=== PATIENT | female | born 1955 | race Caucasian/White ===

== ENCOUNTER 2020-01-25 05:44 | Inpatient (IN) | payer BC ==
[~2020-01-25] VITALS: Ht 177.8 cm; Wt 102.3 kg
[~2020-01-25 05:44] MED LIST: ASPI-1265 PO; CALC-1215 PO; CARV12.5 PO; DULA0.75 SQ; DULO-31 PO; EMPA10TA PO; ESOM40CA49 PO; FEXO-124 PO; FURO40TA4 PO; IVAB5TAB PO; METF-900 PO; SACU1TAB PO; TORS10TA17 PO
[2020-01-25] MEDS ORDERED: aspirin 81mg tab.chew PO ONE (05:50)
[2020-01-25] MEDS ORDERED: nitroGLYCERIN-Tridil 50MG/D5W 250 ML IV PRN ×2 (06:15→06:16)
[2020-01-25] MEDS ORDERED: furosemide 10 MG/1 ML 10ml inj IV ONE (06:15)
[2020-01-25 06:23] LABS: BASOPHILS % (AUTO) 0.4 % (0-1); EOSINOPHILS # (AUTO) 0.1 X10'3 (0-0.9); HEMATOCRIT 42.2 % (35.0-45.0); HEMOGLOBIN 13.9 g/dl (12.0-16.0); LYMPHOCYTES # (AUTO) 0.9 X10'3 (1.1-4.8); LYMPHOCYTES % (AUTO) 9.7 % (21-51); MEAN CORPUSCULAR HGB CONC 32.9 g/dL (33.0-36.5); MEAN CORPUSCULAR VOLUME 85.1 FL (78-98); MEAN PLATELET VOLUME 9.1 FL (7.4-10.4); MONOCYTES # (AUTO) 0.4 X10'3 (0-0.9); MONOCYTES % (AUTO) 4.3 % (2-12); NEUTROPHILS % (AUTO) 84.6 % (42-75); PLATELET COUNT 242 X10'3 (140-440); RED BLOOD COUNT 4.96 X10'6 (4.20-5.60); RED CELL DISTRIBUTION WIDTH 15.4 % (11.5-14.5); WHITE BLOOD COUNT 9.5 X10'3 (4.5-11.0)
[2020-01-25] MEDS ORDERED: ATOR20TA PO (06:40)
[2020-01-25] MEDS ORDERED: CARV6.253 PO (06:44)
[2020-01-25] MEDS ORDERED: DULO30CA52 PO (06:44)
[2020-01-25] MEDS ORDERED: DAPA5TAB PO (06:44)
[2020-01-25] MEDS ORDERED: MAGN500C16 PO (06:48)
[2020-01-25] MEDS ORDERED: INSU100I29 SQ (06:48)
[2020-01-25] MEDS ORDERED: GABA600T13 PO (06:48)
[2020-01-25] MEDS ORDERED: UBID200C18 PO (06:48)
[2020-01-25 06:56] LABS: ALANINE AMINOTRANSFERASE 34 U/L (12-78); ALBUMIN 3.9 G/DL (3.4-5.0); ALKALINE PHOSPHATASE 136 IU/L (46-116); ANION GAP 11 (8-16); ASPARTATE AMINO TRANSFERASE 17 U/L (10-37); BILIRUBIN,TOTAL 0.6 MG/DL (0.1-1.0); BLOOD UREA NITROGEN 15 MG/DL (7-18); BUN/CREATININE RATIO 12.4 (6.6-38.0); CHLORIDE 101 MMOL/L (99-107); CREATININE 1.21 MG/DL (0.40-0.90); GLUCOSE 238 MG/DL (70-104); MAGNESIUM 1.9 MG/DL (1.5-2.4); POTASSIUM 4.3 MMOL/L (3.5-5.1); SODIUM 137 MMOL/L (135-145); TOTAL CARBON DIOXIDE 24.6 MMOL/L (24-32); TOTAL PROTEIN 7.9 G/DL (6.4-8.2); eGFR 45 ML/MIN
[2020-01-25] MEDS ORDERED: magnesium hydroxide 30ml (MOM) UD suspension PO PRN (09:50)
[2020-01-25] MEDS ORDERED: bisacodyl 10mg suppository rectal RC PRN (09:50)
[2020-01-25] MEDS ORDERED: dextrose 50%-water 50ml dispensing syringe IV PRN ×2 (09:50)
[2020-01-25] MEDS ORDERED: MESSAGE TO PHARMACY PO ONE (09:50)
[2020-01-25] MEDS ORDERED: ondansetron/PF 4mg/2ml inj IV PRN (09:50)
[2020-01-25] MEDS ORDERED: potassium Cl 20 mEq SR tablet PO PRN ×2 (09:50)
[2020-01-25] MEDS ORDERED: acetaminophen 650mg rectal suppository RC PRN (09:50)
[2020-01-25] MEDS ORDERED: furosemide 40mg/4ml inj IV SCH (09:50)
[2020-01-25] MEDS ORDERED: insulin Lispro (HumaLOG) vial - multi-dose SQ SCH (09:50)
[2020-01-25] MEDS ORDERED: magnesium 4gm in 100ml NS 100 ML IV PRN (09:50)
[2020-01-25] MEDS ORDERED: diphenhydrAMINE 25mg capsule PO PRN (09:50)
[2020-01-25] MEDS ORDERED: dextrose ORAL solution 15 GM/59 ML bottle PO PRN ×2 (09:50)
[2020-01-25] MEDS ORDERED: mag hydrox/Alum hydrox/simeth 30ml oral suspension PO PRN (09:50)
[2020-01-25] MEDS ORDERED: magnesium 2GM in 50ml NS 50 ML IV PRN (09:50)
[2020-01-25] MEDS ORDERED: acetaminophen 325mg tablet PO PRN ×2 (09:50)
[2020-01-25] MEDS ORDERED: magnesium Cl slow-release 64mg tablet PO PRN (09:50)
[2020-01-25] MEDS ORDERED: potassium CL 10mEq/100ml bag 100 ML IV PRN ×2 (09:50)
[2020-01-25] MEDS ORDERED: glucagon, human recombinant 1mg kit SUBCUT PRN (09:50)
[2020-01-25 10:26] LABS: HEMOGLOBIN A1C 7.5 % (4.5-6.2)
[2020-01-25 10:58] LABS: CLARITY,URINE CLEAR (Clear); COLOR,URINE STRAW (Yellow); GLUCOSE, URINE >=1000 mg/dl (Neg); KETONES,URINE NEGATIVE (Neg); LEUKOCYTE ESTERASE ,URINE NEGATIVE (Neg); NITRITES, URINE NEGATIVE (Neg); OCCULT BLOOD,URINE NEGATIVE (Neg); PROTEIN,URINE NEGATIVE (Neg); UA COLLECTION TYPE CLN CATCH MIDSTREAM; UROBILINOGEN,URINE 0.2 E.U/dL (0.2-1.0)
[2020-01-25 11:04] LABS: BACTERIA,URINE FEW /HPF (Neg); RBC,URINE 0-2 /HPF (0-2); SQUAMOUS EPITHELIAL CELL,UR MODERATE /LPF (FEW); WBC,URINE 0-4 /HPF (0-4)
--- NOTE | 2020-01-25 11:55 | NUR ---
Patient in room PCU 3012. I have received report from Joana BACH in ER and had the opportunity to ask questions and assume patient care.
[2020-01-25 15:00] VITALS: BP 128/72
--- NOTE | 2020-01-25 16:13 | NUR ---
Paged Dr. Jordan PAGER ID: [phone] MESSAGE: Re: Spring Abbott [id number]. FYI Pt is wanting to leave AMA. Please advise Riana BACH [phone]
--- NOTE | 2020-01-25 16:35 | NUR ---
Dr. Jordan responded to page and called. is aware patient is signing AMA form and will not leaving against medical advise. Patient was educated on the pros and cons of staying vs leaving and was offered to change rooms to help reduce stress. Patient continue to only leave AMA and called her El to pick her up. Tele and removed and PIV removed. Patient was educated on follow up with PCP and what to do if symptoms worsen. Patient dressed self and was able to walk self to elevators to front lobby.
[2020-01-25] MEDS ORDERED: heparin, porcine 5000 units/ml vial SQ SCH (20:00)
[2020-01-25] MEDS ORDERED: K and/or MAG REPLACEMENT MC SCH (20:00)
[2020-01-25] MEDS ORDERED: carvedilol 6.25mg tablet PO SCH (20:00)
[2020-01-25] MEDS ORDERED: duloxetine 30mg CAPSULE.DR PO SCH (20:00)
[2020-01-25] MEDS ORDERED: sacubitril/valsartan 24mg-26mg tablet PO SCH (20:00)
[2020-01-25] MEDS ORDERED: gabapentin 300mg capsule PO SCH (20:00)
[2020-01-25] MEDS ORDERED: atorvastatin 20mg tablet PO SCH (21:00)
[2020-01-25] MEDS ORDERED: insulin glargine (Lantus) pen - multi-dose SQ SCH (21:00)
[2020-01-26] MEDS ORDERED: pantoprazole 40mg Tablet.DR PO SCH (07:30)
[2020-01-26] MEDS ORDERED: magnesium oxide 400mg tablet PO SCH (08:00)
[2020-01-26] MEDS ORDERED: furosemide 20MG tablet PO SCH (08:00)
[2020-01-26] MEDS ORDERED: loratadine 10mg tablet PO SCH (08:00)
[2020-01-26] MEDS ORDERED: aspirin 81mg tab.chew PO SCH (08:00)
[2020-01-26] MEDS ORDERED: non-formulary drug (Ubidecarenone (Co Q-10) 1 CAP) PO SCH (08:00)
== END 2020-01-25 16:41 | disposition left against medical advice (07) | DRG 293 ==
LOC: ER 05:45 → ED HOLD 09:46 → PCU 3S 12:18
PROVIDERS: ADMIT Family Medicine; ATTEND Family Medicine
DX: I11.0 Hypertensive heart disease with heart failure (principal); I50.23 Acute on chronic systolic (congestive) heart failure; E11.9 Type 2 diabetes mellitus without complications; M19.90 Unspecified osteoarthritis, unspecified site; J45.998 Other asthma; Z88.0 Allergy status to penicillin; Z88.8 Allergy status to other drugs, medicaments and biological substances; Z53.29 Procedure and treatment not carried out because of patient's decision for other reasons
CPT/HCPCS: 36415; 71045; 80053; 81001; 82948; 83036; 83735; 83880; 84484; 85025; 87081; 93306; 93308; 96365; 96375; 99285; G0378; J1815; J1940; J3490

== ENCOUNTER 2021-03-08 03:12 | Emergency (ER) | payer BC, MEDICARE ==
[~2021-03-08] VITALS: Ht 180.3 cm; Wt 104.5 kg
[~2021-03-08 03:12] MED LIST changes: +ATOR20TA PO; -CALC-1215 PO; -CARV12.5 PO; +CARV6.253 PO; +DAPA5TAB PO; -DULA0.75 SQ; -DULO-31 PO; +DULO30CA52 PO; -EMPA10TA PO; -FURO40TA4 PO; +GABA600T13 PO; +INSU100I29 SQ; +MAGN500C16 PO; +UBID200C18 PO
[2021-03-08 05:37] LABS: BASOPHILS % (AUTO) 0.1 % (0-1); EOSINOPHILS # (AUTO) 0.1 X10'3 (0-0.9); EOSINOPHILS % (AUTO) 1.2 % (0-6); HEMATOCRIT 36.1 % (35.0-45.0); HEMOGLOBIN 11.8 g/dl (12.0-16.0); LYMPHOCYTES # (AUTO) 0.7 X10'3 (1.1-4.8); LYMPHOCYTES % (AUTO) 5.9 % (21-51); MEAN CORPUSCULAR HEMOGLOBIN 26.1 PG (27.0-31.0); MEAN CORPUSCULAR HGB CONC 32.7 g/dL (33.0-36.5); MEAN CORPUSCULAR VOLUME 79.8 FL (78-98); MEAN PLATELET VOLUME 9.9 FL (7.4-10.4); MONOCYTES # (AUTO) 0.5 X10'3 (0-0.9); MONOCYTES % (AUTO) 4.6 % (2-12); NEUTROPHILS # (AUTO) 10.3 X10'3 (1.8-7.7); NEUTROPHILS % (AUTO) 88.2 % (42-75); PLATELET COUNT 243 X10'3 (140-440); RED BLOOD COUNT 4.52 X10'6 (4.20-5.60); WHITE BLOOD COUNT 11.7 X10'3 (4.5-11.0)
[2021-03-08 05:42] LABS: ALANINE AMINOTRANSFERASE 9 U/L (12-78); ALBUMIN 3.2 G/DL (3.4-5.0); ALBUMIN/GLOBULIN RATIO 0.8 (1.1-1.5); ALKALINE PHOSPHATASE 90 IU/L (46-116); ANION GAP 14 (8-16); ASPARTATE AMINO TRANSFERASE 10 U/L (10-37); BILIRUBIN,TOTAL 0.7 MG/DL (0.1-1.0); BLOOD UREA NITROGEN 16 MG/DL (7-18); CALCIUM 8.1 MG/DL (8.5-10.1); CHLORIDE 104 MMOL/L (99-107); CREATININE 1.07 MG/DL (0.40-0.90); GLUCOSE 175 MG/DL (70-104); POTASSIUM 3.8 MMOL/L (3.5-5.1); SODIUM 140 MMOL/L (135-145); TOTAL PROTEIN 7.2 G/DL (6.4-8.2); eGFR 51 ML/MIN
[2021-03-08 06:40] VITALS: BP 138/79
[2021-03-08] MEDS ORDERED: furosemide 10 MG/1 ML 10ml inj IV ONE (07:00)
== END 2021-03-08 07:32 | disposition home or self-care (01) ==
LOC: ER 03:12
DX: I50.33 Acute on chronic diastolic (congestive) heart failure (principal); Z20.822 Contact with and (suspected) exposure to COVID-19; R06.02 Shortness of breath; R05.9 Cough, unspecified; I50.9 Heart failure, unspecified; I11.0 Hypertensive heart disease with heart failure; J45.909 Unspecified asthma, uncomplicated; E11.9 Type 2 diabetes mellitus without complications; G89.29 Other chronic pain; Z87.440 Personal history of urinary (tract) infections; Z98.890 Other specified postprocedural states; Z85.9 Personal history of malignant neoplasm, unspecified; Z72.89 Other problems related to lifestyle; Z88.0 Allergy status to penicillin; Z91.040 Latex allergy status; Z88.5 Allergy status to narcotic agent; Z79.82 Long term (current) use of aspirin; Z79.4 Long term (current) use of insulin; Z79.899 Other long term (current) drug therapy
CPT/HCPCS: 36415; 71045; 80053; 83880; 84484; 85025; 87635; 93005; 96374; 99285; C9803; J1940

== ENCOUNTER 2021-08-12 10:21 | Outpatient (CLI) | payer MEDICARE ==
[~2021-08-12 10:21] MED LIST changes: -FEXO-124 PO; +FEXO-271 PO; -MAGN500C16 PO; +MAGN500C4 PO
== END 2021-08-12 23:59 | disposition home or self-care (01) ==
LOC: RAD 10:21
PROVIDERS: ATTEND Psychiatry & Neurology Neurology
DX: R94.01 Abnormal electroencephalogram [EEG] (principal); R55 Syncope and collapse
CPT/HCPCS: 95816

== ENCOUNTER 2022-09-17 03:46 | Emergency (ER) | payer MEDICARE ==
[~2022-09-17] VITALS: Ht 177.8 cm; Wt 80.0 kg
[~2022-09-17 03:46] MED LIST changes: -ASPI-1265 PO; +CARV-50 PO; -CARV6.253 PO; -DULO30CA52 PO; +EMPA10TA PO; -GABA600T13 PO; +LYR75C PO; -MAGN500C4 PO; +POTA20PA31 PO; +SITA100T11 PO; +SPIR25TA5 PO; -UBID200C18 PO
--- NOTE | 2022-09-17 04:25 | NUR ---
BOTH PATIENT AND SEEM UNAWARE OF WHICH MEDICATION THEY ARE REQUESTING. THEY AGREE IT COULD POSSIBLY BE LYRICA WHICH APPEARS TO HAVE BEEN FILLED ON 09/15 BUT PT AND STATE THEY GET MEDS THROUGH A MAIL ORDER SERVICE AND THEY HAVE NOT RECEIVED THEM.
[2022-09-17] MEDS ORDERED: pregabalin 75mg capsule PO ONE (05:20)
--- NOTE | 2022-09-17 05:28 | NUR ---
PT MADE AWARE OF NEED FOR URINE SAMPLE, SHE IS NOT WILLING TO ATTEMPT AT THIS TIME
[2022-09-17 05:39] LABS: BASOPHILS % (AUTO) 0.3 % (0-1); EOSINOPHILS % (AUTO) 0.1 % (0-6); HEMATOCRIT 37.9 % (35.0-45.0); HEMOGLOBIN 12.4 g/dl (12.0-16.0); LYMPHOCYTES # (AUTO) 0.8 X10'3 (1.1-4.8); LYMPHOCYTES % (AUTO) 5.8 % (21-51); MEAN CORPUSCULAR HEMOGLOBIN 24.3 PG (27.0-31.0); MEAN CORPUSCULAR HGB CONC 32.7 g/dL (33.0-36.5); MEAN CORPUSCULAR VOLUME 74.5 FL (78-98); MEAN PLATELET VOLUME 9.8 FL (7.4-10.4); MONOCYTES # (AUTO) 0.6 X10'3 (0-0.9); MONOCYTES % (AUTO) 4.4 % (2-12); NEUTROPHILS # (AUTO) 11.6 X10'3 (1.8-7.7); NEUTROPHILS % (AUTO) 89.4 % (42-75); PLATELET COUNT 263 X10'3 (140-440); RED BLOOD COUNT 5.09 X10'6 (4.20-5.60); RED CELL DISTRIBUTION WIDTH 18.5 % (11.5-14.5)
--- NOTE | 2022-09-17 05:49 | NUR ---
THIS RN CALLED TO BEDSIDE BY PTS WHO STATES "SHE'S HAVING TROUBLE BREATHING". ARRIVED TO FIND PT IN NO APPARENT DISTRESS, SPO2 95-99%, CLEAR LUNG SOUNDS. OFFERED TO PLACE PT ON OXYGEN NASAL CANNULA FOR COMFORT OR TO REPOSITION. PT REFUSES THOSE INTERVENTIONS AT THIS TIME. ASSURED PT AND THAT THIS RN IS MONITORING VITAL SIGNS FROM NURSES STATIONS AND THAT THEY ARE WELCOME TO ASK FOR EVALUATION AT ANY TIME
[2022-09-17 06:00] LABS: ALANINE AMINOTRANSFERASE 16 U/L (12-78); ALBUMIN 4.1 G/DL (3.4-5.0); ALKALINE PHOSPHATASE 98 IU/L (46-116); ANION GAP 13 (8-16); ASPARTATE AMINO TRANSFERASE 16 U/L (10-37); BILIRUBIN,TOTAL 1.6 MG/DL (0.1-1.0); BLOOD UREA NITROGEN 27 MG/DL (7-18); BUN/CREATININE RATIO 18.8 (10.0-20.0); CALCIUM 9.2 MG/DL (8.5-10.1); CHLORIDE 100 MMOL/L (99-107); CREATININE 1.44 MG/DL (0.40-0.90); ETHANOL < 0.010 GM/DL (0.0-0.010); GLUCOSE 181 MG/DL (70-104); POTASSIUM 3.2 MMOL/L (3.5-5.1); SODIUM 141 MMOL/L (135-145); TOTAL PROTEIN 8.1 G/DL (6.4-8.2); eGFR 36 ML/MIN
[2022-09-17] MEDS ORDERED: LYR75C PO (06:17)
[2022-09-17] MEDS ORDERED: POTASSIUM BICARB 20meq eff tab 20 MEQ TABLET.EFF PO ONE (06:45)
[2022-09-17 07:47] VITALS: BP 122/72
== END 2022-09-17 07:48 | disposition home or self-care (01) ==
LOC: ER 03:47
DX: M79.10 Myalgia, unspecified site (principal); R53.83 Other fatigue; Z76.0 Encounter for issue of repeat prescription; I11.0 Hypertensive heart disease with heart failure; E11.9 Type 2 diabetes mellitus without complications; G89.29 Other chronic pain; Z88.0 Allergy status to penicillin; Z91.040 Latex allergy status; Z88.5 Allergy status to narcotic agent; Z79.899 Other long term (current) drug therapy; Z79.1 Long term (current) use of non-steroidal anti-inflammatories (NSAID); Z79.2 Long term (current) use of antibiotics
CPT/HCPCS: 36415; 71045; 80053; 80320; 82948; 84145; 85025; 93005; 99285; A4615

== ENCOUNTER 2023-03-08 09:54 | Emergency (ER) | payer MEDICARE ==
[~2023-03-08] VITALS: Ht 177.8 cm; Wt 93.2 kg
[~2023-03-08 09:54] MED LIST changes: +ASPI-1071 PO; -CARV-50 PO; +CARV6.253 PO; +CLOP75TA34 PO; +DULA0.75 SQ; +DULO60CA65 PO; -EMPA10TA PO; -IVAB5TAB PO; +METF-436 PO; -METF-900 PO; -SITA100T11 PO
[2023-03-08 09:57] VITALS: BP 100/54; PULSE 69; O2SAT 95
[2023-03-08] MEDS ORDERED: LIDOcaine 1% (10mg/ml)w/preservative inj. 20ml MDV SQ ONE (10:05)
[2023-03-08 10:14] VITALS: RESP 18
[2023-03-08 10:25] LABS: EOSINOPHILS # (AUTO) 0.2 X10'3 (0-0.9); LYMPHOCYTES # (AUTO) 0.8 X10'3 (1.1-4.8); MONOCYTES # (AUTO) 0.5 X10'3 (0-0.9); MONOCYTES % (AUTO) 5.7 % (2-12); RED BLOOD COUNT 4.85 X10'6 (4.20-5.60); WHITE BLOOD COUNT 8.3 X10'3 (4.5-11.0)
[2023-03-08 10:26] LABS: BASOPHILS % (AUTO) 0.5 % (0-1); EOSINOPHILS % (AUTO) 2.8 % (0-6); HEMATOCRIT 38.2 % (35.0-45.0); HEMOGLOBIN 12.1 g/dl (12.0-16.0); LYMPHOCYTES % (AUTO) 9.4 % (21-51); MEAN CORPUSCULAR HGB CONC 31.7 g/dL (33.0-36.5); MEAN CORPUSCULAR VOLUME 78.9 FL (78-98); MEAN PLATELET VOLUME 9.3 FL (7.4-10.4); NEUTROPHILS # (AUTO) 6.7 X10'3 (1.8-7.7); NEUTROPHILS % (AUTO) 81.6 % (42-75); PLATELET COUNT 295 X10'3 (140-440); RED CELL DISTRIBUTION WIDTH 18.9 % (11.5-14.5)
--- NOTE | 2023-03-08 10:38 | NUR ---
WAITER AND CASHIER GENERAL ASSESSMENT REVIEWED; APROVED
[2023-03-08 10:42] LABS: ALANINE AMINOTRANSFERASE 24 U/L (12-78); ALBUMIN 3.3 G/DL (3.4-5.0); ALBUMIN/GLOBULIN RATIO 0.8 (1.1-1.5); ALKALINE PHOSPHATASE 106 IU/L (46-116); ANION GAP 9 (8-16); ASPARTATE AMINO TRANSFERASE 22 U/L (10-37); BILIRUBIN,TOTAL 0.8 MG/DL (0.1-1.0); BLOOD UREA NITROGEN 33 MG/DL (7-18); CALCIUM 8.8 MG/DL (8.5-10.1); CHLORIDE 100 MMOL/L (99-107); GLUCOSE 78 MG/DL (70-104); POTASSIUM 3.5 MMOL/L (3.5-5.1); SODIUM 139 MMOL/L (135-145); TOTAL CARBON DIOXIDE 29.8 MMOL/L (24-32); TOTAL PROTEIN 7.3 G/DL (6.4-8.2); eCRCL 39 ML/MIN; eGFR 35 ML/MIN
[2023-03-08 10:49] LABS: PRO BRAIN NATRIURETIC PEPTIDE 3287 PG/ML (0-125)
[2023-03-08 11:08] LABS: ANISOCYTOSIS 2+; GIANT PLATELET FEW; LARGE PLATELETS FEW; MICROCYTOSIS 1+; PLATELET ESTIMATE NORMAL
[2023-03-08 12:04] VITALS: TEMP 98
== END 2023-03-08 12:04 | disposition home or self-care (01) ==
LOC: ER 09:55
DX: S63.287A Dislocation of proximal interphalangeal joint of left little finger, initial encounter (principal); I13.0 Hypertensive heart and chronic kidney disease with heart failure and stage 1 through stage 4 chronic kidney disease, or unspecified chronic kidney disease; I50.9 Heart failure, unspecified; J45.909 Unspecified asthma, uncomplicated; N18.9 Chronic kidney disease, unspecified; E11.22 Type 2 diabetes mellitus with diabetic chronic kidney disease; Z88.0 Allergy status to penicillin; Z91.040 Latex allergy status; Z88.5 Allergy status to narcotic agent; Z79.899 Other long term (current) drug therapy; X58.XXXA Exposure to other specified factors, initial encounter; Y93.89 Activity, other specified; Y92.89 Other specified places as the place of occurrence of the external cause; Y99.8 Other external cause status
CPT/HCPCS: 26770; 36415; 71045; 73130; 73140; 80053; 83880; 84484; 85008; 85025; 93005; 99285

== ENCOUNTER 2023-04-27 08:17 | Emergency (ER) | payer MEDICARE ==
[~2023-04-27] VITALS: Ht 177.8 cm; Wt 95.2 kg
[2023-04-27 08:36] VITALS: TEMP 97.2
[2023-04-27 09:42] LABS: BASOPHILS % (AUTO) 0.2 % (0-1); EOSINOPHILS # (AUTO) 0.1 X10'3 (0-0.9); EOSINOPHILS % (AUTO) 0.8 % (0-6); HEMATOCRIT 36.8 % (35.0-45.0); LYMPHOCYTES # (AUTO) 1.1 X10'3 (1.1-4.8); LYMPHOCYTES % (AUTO) 12.5 % (21-51); MEAN CORPUSCULAR HEMOGLOBIN 24.8 PG (27.0-31.0); MEAN CORPUSCULAR HGB CONC 32.7 g/dL (33.0-36.5); MEAN CORPUSCULAR VOLUME 75.8 FL (78-98); MEAN PLATELET VOLUME 9.9 FL (7.4-10.4); MONOCYTES # (AUTO) 0.5 X10'3 (0-0.9); MONOCYTES % (AUTO) 5.3 % (2-12); NEUTROPHILS # (AUTO) 7.1 X10'3 (1.8-7.7); NEUTROPHILS % (AUTO) 81.2 % (42-75); PLATELET COUNT 193 X10'3 (140-440); RED BLOOD COUNT 4.85 X10'6 (4.20-5.60); RED CELL DISTRIBUTION WIDTH 19.2 % (11.5-14.5); WHITE BLOOD COUNT 8.8 X10'3 (4.5-11.0)
[2023-04-27 09:57] LABS: ALANINE AMINOTRANSFERASE 22 U/L (12-78); ALBUMIN 3.3 G/DL (3.4-5.0); ALBUMIN/GLOBULIN RATIO 0.8 (1.1-1.5); ALKALINE PHOSPHATASE 117 IU/L (46-116); ANION GAP 7 (8-16); ASPARTATE AMINO TRANSFERASE 22 U/L (10-37); BILIRUBIN,TOTAL 0.8 MG/DL (0.1-1.0); BLOOD UREA NITROGEN 32 MG/DL (7-18); BUN/CREATININE RATIO 20.5 (10.0-20.0); CALCIUM 9.1 MG/DL (8.5-10.1); CHLORIDE 97 MMOL/L (99-107); CREATININE 1.56 MG/DL (0.40-0.90); GLUCOSE 166 MG/DL (70-104); POTASSIUM 4.2 MMOL/L (3.5-5.1); SODIUM 136 MMOL/L (135-145); TOTAL CARBON DIOXIDE 31.6 MMOL/L (24-32); TOTAL PROTEIN 7.3 G/DL (6.4-8.2); eCRCL 38 ML/MIN; eGFR 33 ML/MIN
[2023-04-27 10:03] LABS: PRO BRAIN NATRIURETIC PEPTIDE 3334 PG/ML (0-125)
[2023-04-27 10:13] LABS: ANISOCYTOSIS 2+; HYPOCHROMASIA 1+; MICROCYTOSIS 1+; PLATELET ESTIMATE NORMAL
[2023-04-27 10:36] VITALS: BP 90/52; PULSE 69; RESP 17; O2SAT 97
== END 2023-04-27 11:29 | disposition home or self-care (01) ==
LOC: ER 08:17
DX: S86.912A Strain of unspecified muscle(s) and tendon(s) at lower leg level, left leg, initial encounter (principal); S90.32XA Contusion of left foot, initial encounter; R55 Syncope and collapse; I95.9 Hypotension, unspecified; R42 Dizziness and giddiness; I13.0 Hypertensive heart and chronic kidney disease with heart failure and stage 1 through stage 4 chronic kidney disease, or unspecified chronic kidney disease; I50.9 Heart failure, unspecified; E11.22 Type 2 diabetes mellitus with diabetic chronic kidney disease; N18.9 Chronic kidney disease, unspecified; Z88.0 Allergy status to penicillin; Z91.040 Latex allergy status; Z88.5 Allergy status to narcotic agent; Z79.82 Long term (current) use of aspirin; Z79.899 Other long term (current) drug therapy; W19.XXXA Unspecified fall, initial encounter; Y93.89 Activity, other specified; Y92.89 Other specified places as the place of occurrence of the external cause; Y99.8 Other external cause status
CPT/HCPCS: 36415; 71045; 73564; 73630; 80053; 83880; 84484; 85008; 85025; 93005; 99285

== ENCOUNTER 2023-06-24 09:59 | Inpatient (IN) | payer MEDICARE ==
[2023-06-24] VITALS (7 sets, daily range): BP systolic 110–126; BP diastolic 74–84; PULSE 106–118; RESP 14–26; TEMP 97.1–98.4; O2SAT 4–98
[~2023-06-24] VITALS: Ht 177.8 cm; Wt 95.5 kg
[2023-06-24 11:07] LABS: BASOPHILS % (AUTO) 0.2 % (0-1); EOSINOPHILS # (AUTO) 0.1 X10'3 (0-0.9); EOSINOPHILS % (AUTO) 0.4 % (0-6); HEMATOCRIT 37.6 % (35.0-45.0); LYMPHOCYTES # (AUTO) 0.6 X10'3 (1.1-4.8); LYMPHOCYTES % (AUTO) 5.1 % (21-51); MEAN CORPUSCULAR HEMOGLOBIN 24.9 PG (27.0-31.0); MEAN CORPUSCULAR HGB CONC 31.9 g/dL (33.0-36.5); MEAN PLATELET VOLUME 9.7 FL (7.4-10.4); MONOCYTES # (AUTO) 0.5 X10'3 (0-0.9); MONOCYTES % (AUTO) 3.9 % (2-12); NEUTROPHILS % (AUTO) 90.4 % (42-75); PLATELET COUNT 290 X10'3 (140-440); RED BLOOD COUNT 4.82 X10'6 (4.20-5.60); RED CELL DISTRIBUTION WIDTH 21.8 % (11.5-14.5); WHITE BLOOD COUNT 12.2 X10'3 (4.5-11.0)
[2023-06-24 11:30] LABS: INR 1.2 INR; PROTHROMBIN TIME 12.3 SECONDS (9.0-12.0)
[2023-06-24] MEDS: furosemide 10 MG/1 ML 10ml inj IV ONE (11:30)
[2023-06-24 11:31] LABS: ALBUMIN 3.3 G/DL (3.4-5.0); ANION GAP 12 (8-16); BLOOD UREA NITROGEN 19 MG/DL (7-18); BUN/CREATININE RATIO 14.4 (10.0-20.0); CALCIUM 8.8 MG/DL (8.5-10.1); CHLORIDE 98 MMOL/L (99-107); CREATININE 1.32 MG/DL (0.40-0.90); GLUCOSE 158 MG/DL (70-104); POTASSIUM 2.8 MMOL/L (3.5-5.1); PRO BRAIN NATRIURETIC PEPTIDE 21969 PG/ML (0-125); SODIUM 140 MMOL/L (135-145); TOTAL CARBON DIOXIDE 29.6 MMOL/L (24-32); eCRCL 45 ML/MIN; eGFR 40 ML/MIN
[2023-06-24 11:33] LABS: ANISOCYTOSIS 3+; MICROCYTOSIS 1+; PLATELET ESTIMATE NORMAL
[2023-06-24 11:34] LABS: POLYCHROMASIA FEW; STOMATOCYTES FEW; TARGET CELLS FEW; TEAR DROP CELLS FEW
[2023-06-24] MEDS ORDERED: potassium Cl 20 mEq SR tablet PO STA (11:34)
[2023-06-24] MEDS ORDERED: potassium CL 10mEq/100ml bag 100 ML IV SCH (11:35)
[2023-06-24] MEDS: potassium CL 10mEq/100ml bag 100 ML IV SCH (12:26)
[2023-06-24] MEDS: potassium Cl 20 mEq SR tablet PO STA (12:27)
[2023-06-24] MEDS ORDERED: potassium Cl 40MEQ/1/2NS 520ml 520 ML IV PRN (12:30)
[2023-06-24] MEDS ORDERED: acetaminophen 325mg tablet PO PRN (12:30)
[2023-06-24] MEDS ORDERED: ondansetron/PF 4mg/2ml inj IV PRN (12:30)
[2023-06-24] MEDS ORDERED: magnesium 4gm in 100ml NS 100 ML IV PRN (12:30)
[2023-06-24] MEDS ORDERED: magnesium 2GM in 50ml NS 50 ML IV PRN (12:30)
[2023-06-24] MEDS ORDERED: magnesium Cl slow-release 64mg tablet PO PRN (12:30)
[2023-06-24] MEDS ORDERED: mag hydrox/Alum hydrox/simeth 30ml oral suspension PO PRN (12:30)
[2023-06-24] MEDS ORDERED: potassium Cl 20 mEq SR tablet PO PRN (12:30)
[2023-06-24] MEDS ORDERED: ipratropium/albuterol 3ml nebule NEB PRN (12:40)
[2023-06-24] MEDS ORDERED: potassium CL 10mEq/100ml bag 100 ML IV ONE (13:08)
[2023-06-24] MEDS ORDERED: LOSA25TA41 PO (13:20)
[2023-06-24 16:29] LABS: MAGNESIUM 1.5 MG/DL (1.5-2.4); PHOSPHORUS 4.3 MG/DL (2.3-4.5)
[2023-06-24] MEDS ORDERED: glucagon, human recombinant 1mg kit SUBCUT PRN (18:05)
[2023-06-24] MEDS ORDERED: dextrose 50%-water 50ml dispensing syringe IV PRN ×2 (18:05)
[2023-06-24] MEDS ORDERED: DEXTROSE 15 GM of carb/4 tabs (each vial/BOTTLE has 4 tablets) PO PRN ×2 (18:05)
[2023-06-24] MEDS: MESSAGE TO PHARMACY PO ONE (18:05)
[2023-06-24] MEDS: carvedilol 6.25mg tablet PO SCH (19:16)
[2023-06-24] MEDS: pregabalin 75mg capsule PO SCH (19:16)
[2023-06-24] MEDS: furosemide 10 MG/1 ML 10ml inj IV SCH (19:16)
[2023-06-24] MEDS: duloxetine 30mg CAPSULE.DR PO SCH (19:17)
[2023-06-24] MEDS: docusate sod 100mg capsule PO SCH (19:17)
[2023-06-24] MEDS: K and/or MAG REPLACEMENT MC SCH (20:00)
[2023-06-24] MEDS: insulin glargine (Lantus) pen - multi-dose SQ SCH (23:33)
[2023-06-24] MEDS: heparin, porcine 5000 units/ml vial SQ SCH (23:34)
[2023-06-24] MEDS: atorvastatin 20mg tablet PO SCH (23:34)
[2023-06-25] VITALS (18 sets, daily range): BP systolic 110–135; BP diastolic 62–74; PULSE 71–110; RESP 13–23; TEMP 96.7–97.8; O2SAT 92–99
[2023-06-25] MEDS: albuterol 2.5 MG/3 ML nebule NEB PRN (01:27)
[2023-06-25] MEDS: LidoCAINE 2% Topical Jelly 11mL syringe TOP ONE (06:40)
[2023-06-25] MEDS ORDERED: furosemide 40mg/4ml inj IV ONE (07:45)
[2023-06-25 08:17] LABS: BASOPHILS % (AUTO) 0.2 % (0-1); EOSINOPHILS % (AUTO) 0.3 % (0-6); HEMATOCRIT 36.2 % (35.0-45.0); HEMOGLOBIN 11.8 g/dl (12.0-16.0); LYMPHOCYTES # (AUTO) 0.9 X10'3 (1.1-4.8); LYMPHOCYTES % (AUTO) 8.9 % (21-51); MEAN CORPUSCULAR HEMOGLOBIN 25.4 PG (27.0-31.0); MEAN CORPUSCULAR HGB CONC 32.6 g/dL (33.0-36.5); MEAN PLATELET VOLUME 9.7 FL (7.4-10.4); MONOCYTES # (AUTO) 0.4 X10'3 (0-0.9); NEUTROPHILS # (AUTO) 8.8 X10'3 (1.8-7.7); NEUTROPHILS % (AUTO) 86.6 % (42-75); PLATELET COUNT 304 X10'3 (140-440); RED BLOOD COUNT 4.65 X10'6 (4.20-5.60); RED CELL DISTRIBUTION WIDTH 21.3 % (11.5-14.5); WHITE BLOOD COUNT 10.2 X10'3 (4.5-11.0)
[2023-06-25] MEDS: clopidogrel 75mg tablet PO SCH ×2 (08:31→23:18)
[2023-06-25] MEDS: spironolactone 25 MG tablet PO SCH (08:31)
[2023-06-25 09:11] LABS: ALANINE AMINOTRANSFERASE 16 U/L (12-78); ALBUMIN 3.2 G/DL (3.4-5.0); ALBUMIN/GLOBULIN RATIO 0.8 (1.1-1.5); ALKALINE PHOSPHATASE 90 IU/L (46-116); ANION GAP 15 (8-16); ASPARTATE AMINO TRANSFERASE 17 U/L (10-37); BILIRUBIN,TOTAL 1.9 MG/DL (0.1-1.0); BLOOD UREA NITROGEN 29 MG/DL (7-18); BUN/CREATININE RATIO 19.3 (10.0-20.0); CALCIUM 8.6 MG/DL (8.5-10.1); CHLORIDE 99 MMOL/L (99-107); CHOL/HDL RATIO 3.6 (0.00-4.99); CHOLESTEROL 114 MG/DL (0-200); FREE T4 (FREE THYROXINE) 1.63 NG/DL (0.73-1.40); GLUCOSE 174 MG/DL (70-104); HDL CHOLESTEROL 32 MG/DL (35-60); LDL CHOLESTEROL 62 MG/DL (50-100); MAGNESIUM 1.7 MG/DL (1.5-2.4); POTASSIUM 3.4 MMOL/L (3.5-5.1); SODIUM 140 MMOL/L (135-145); THYROID STIMULATING HORMONE 1.68 ulU/ml (0.34-4.50); TOTAL CARBON DIOXIDE 26.1 MMOL/L (24-32); TOTAL PROTEIN 7.4 G/DL (6.4-8.2); TRIGLYCERIDES 110 MG/DL (20-135); eCRCL 39 ML/MIN; eGFR 35 ML/MIN
[2023-06-25] MEDS: methylPREDNISolone sod succ 125mg/2ml vial IV ONE (11:30)
[2023-06-25] MEDS: furosemide 40mg/4ml inj IV SCH (13:44)
[2023-06-25 15:51] LABS: ABG HCO3 25.8 mmol/L (22.0-26.0); ABG OXYGEN SATURATION 96.5 % (94-97); ABG PCO2 (T) 35.5 mmHg (32.0-45.0); ABG PH (T) 7.474 (7.350-7.450); ABG PO2 (T) 79.5 mmHg (75.0-100.0); ALLEN'S TEST POSITIVE; FCOHb 1.2 % (0.0-3.9); FHHb 3.5 % (0.0-5.0); FLOW 3 L/min; FMetHb 0.1 % (0.0-1.5); FO2Hb 95.2 % (94-97); MODE NASAL CANNULA; PATIENT TEMPERATURE 35.7; TOTAL HEMOGLOBIN 13.1 G/dl (12.0-16.0)
[2023-06-25] MEDS: methylPREDNISolone sod succ 125mg/2ml vial IV SCH (16:21)
[2023-06-25] MEDS: lactose-reduced food (Ensure High Protein) 237ml bottle PO SCH (18:30)
[2023-06-25] MEDS: potassium Cl 20 mEq SR tablet PO PRN (20:33)
[2023-06-25] MEDS: insulin Lispro (HumaLOG) vial - multi-dose SQ SCH (22:04)
[2023-06-25] MEDS: PERFLUTREN PROTEIN-A MICROSPHR (Optison) 0.22 MG/ML 3ML VIAL IV ONE (22:10)
[2023-06-25] MEDS: duloxetine 30mg CAPSULE.DR PO SCH (22:40)
[2023-06-25] MEDS: azithromycin 250mg tablet PO SCH (23:18)
[2023-06-25] MEDS: CefTRIAXone/D5W-Rocephin 1gm 50 ML IV SCH (23:19)
[2023-06-25] MEDS: ipratropium/albuterol 3ml nebule NEB SCH (23:55)
[2023-06-26] VITALS (22 sets, daily range): BP systolic 92–119; BP diastolic 50–73; PULSE 74–104; RESP 1–23; TEMP 97.4–98.3; O2SAT 91–97
[2023-06-26 06:50] LABS: ALANINE AMINOTRANSFERASE 17 U/L (12-78); ALBUMIN 3.1 G/DL (3.4-5.0); ALBUMIN/GLOBULIN RATIO 0.8 (1.1-1.5); ALKALINE PHOSPHATASE 81 IU/L (46-116); ANION GAP 17 (8-16); ASPARTATE AMINO TRANSFERASE 14 U/L (10-37); BILIRUBIN,TOTAL 1.4 MG/DL (0.1-1.0); BLOOD UREA NITROGEN 43 MG/DL (7-18); CALCIUM 8.3 MG/DL (8.5-10.1); CHLORIDE 97 MMOL/L (99-107); CREATININE 1.59 MG/DL (0.40-0.90); GLUCOSE 238 MG/DL (70-104); POTASSIUM 3.5 MMOL/L (3.5-5.1); SODIUM 140 MMOL/L (135-145); TOTAL CARBON DIOXIDE 25.9 MMOL/L (24-32); TOTAL PROTEIN 6.9 G/DL (6.4-8.2); eCRCL 37 ML/MIN; eGFR 32 ML/MIN
[2023-06-26 06:52] LABS: BASOPHILS % (AUTO) 0.1 % (0-1); EOSINOPHILS % (AUTO) 0 % (0-6); HEMATOCRIT 34.9 % (35.0-45.0); HEMOGLOBIN 11.2 g/dl (12.0-16.0); LYMPHOCYTES # (AUTO) 0.5 X10'3 (1.1-4.8); LYMPHOCYTES % (AUTO) 6.8 % (21-51); MEAN CORPUSCULAR HGB CONC 32.2 g/dL (33.0-36.5); MEAN CORPUSCULAR VOLUME 77.7 FL (78-98); MEAN PLATELET VOLUME 9.9 FL (7.4-10.4); MONOCYTES # (AUTO) 0.2 X10'3 (0-0.9); NEUTROPHILS % (AUTO) 91.1 % (42-75); PLATELET COUNT 295 X10'3 (140-440); RED BLOOD COUNT 4.48 X10'6 (4.20-5.60); RED CELL DISTRIBUTION WIDTH 21.7 % (11.5-14.5); WHITE BLOOD COUNT 7.7 X10'3 (4.5-11.0)
[2023-06-26] MEDS: pregabalin 75mg capsule PO SCH (08:00)
[2023-06-26] MEDS: losartan 25mg tablet PO SCH (08:00)
[2023-06-26 08:27] LABS: PLATELET ESTIMATE NORMAL
[2023-06-26 08:28] LABS: ANISOCYTOSIS 3+; HYPOCHROMASIA 1+; MICROCYTOSIS 1+; POLYCHROMASIA 1+
[2023-06-26] MEDS: DAPAGLIFLOZIN 10MG TABLET PO SCH (09:20)
[2023-06-26] MEDS ORDERED: furosemide 40mg/4ml inj IV SCH (10:00)
[2023-06-26] MEDS: furosemide 20 MG/2 ML vial IV SCH (13:13)
[2023-06-26] MEDS: magnesium hydroxide 30ml (MOM) UD suspension PO PRN (20:22)
[2023-06-26] MEDS ORDERED: atorvastatin 20mg tablet PO SCH (21:00)
[2023-06-27] VITALS (16 sets, daily range): BP systolic 93–137; BP diastolic 47–78; PULSE 74–109; RESP 11–22; TEMP 97.1–97.9; O2SAT 90–97
[2023-06-27] MEDS: LORazepam 2 mg/ml vial IV ONE (06:49)
[2023-06-27 07:44] LABS: EOSINOPHILS % (AUTO) 0 % (0-6); LYMPHOCYTES # (AUTO) 0.5 X10'3 (1.1-4.8); LYMPHOCYTES % (AUTO) 3.9 % (21-51); MONOCYTES # (AUTO) 0.5 X10'3 (0-0.9); NEUTROPHILS % (AUTO) 92.1 % (42-75)
[2023-06-27 07:46] LABS: BASOPHILS % (AUTO) 0.1 % (0-1); HEMATOCRIT 38.3 % (35.0-45.0); HEMOGLOBIN 12.6 g/dl (12.0-16.0); MEAN CORPUSCULAR HEMOGLOBIN 25.6 PG (27.0-31.0); MEAN CORPUSCULAR HGB CONC 32.8 g/dL (33.0-36.5); MEAN CORPUSCULAR VOLUME 78.2 FL (78-98); MEAN PLATELET VOLUME 10.1 FL (7.4-10.4); MONOCYTES % (AUTO) 3.9 % (2-12); NEUTROPHILS # (AUTO) 10.9 X10'3 (1.8-7.7); PLATELET COUNT 384 X10'3 (140-440); WHITE BLOOD COUNT 11.8 X10'3 (4.5-11.0)
[2023-06-27 08:17] LABS: GIANT PLATELET FEW; LARGE PLATELETS FEW; PLATELET ESTIMATE NORMAL
[2023-06-27 08:18] LABS: ANISOCYTOSIS 3+; BURR CELLS FEW; HYPOCHROMASIA 1+; MICROCYTOSIS 1+; POLYCHROMASIA 1+
[2023-06-27 08:25] LABS: ALANINE AMINOTRANSFERASE 321 U/L (12-78); ALBUMIN 3.4 G/DL (3.4-5.0); ALBUMIN/GLOBULIN RATIO 0.8 (1.1-1.5); ALKALINE PHOSPHATASE 93 IU/L (46-116); ANION GAP 18 (8-16); ASPARTATE AMINO TRANSFERASE 481 U/L (10-37); BILIRUBIN,TOTAL 1.5 MG/DL (0.1-1.0); CALCIUM 9.1 MG/DL (8.5-10.1); CHLORIDE 94 MMOL/L (99-107); GLUCOSE 207 MG/DL (70-104); MAGNESIUM 2.9 MG/DL (1.5-2.4); SODIUM 136 MMOL/L (135-145); TOTAL CARBON DIOXIDE 24.3 MMOL/L (24-32); TOTAL PROTEIN 7.7 G/DL (6.4-8.2); eCRCL 24 ML/MIN; eGFR 19 ML/MIN
[2023-06-27 08:33] LABS: BLOOD UREA NITROGEN 61 MG/DL (7-18); BUN/CREATININE RATIO 24.4 (10.0-20.0)
[2023-06-27] MEDS ORDERED: furosemide 20 MG/2 ML vial IV SCH (20:00)
[2023-06-27] MEDS: furosemide 20 MG/2 ML vial IV SCH (20:25)
[2023-06-27] MEDS: mirtazapine 15mg tablet PO SCH (21:00)
[2023-06-28] VITALS (23 sets, daily range): BP systolic 85–102; BP diastolic 41–57; PULSE 70–88; RESP 8–21; TEMP 97.1–97.6; O2SAT 92–100
[2023-06-28 06:04] LABS: BASOPHILS % (AUTO) 0.1 % (0-1); EOSINOPHILS % (AUTO) 0 % (0-6); HEMATOCRIT 34.3 % (35.0-45.0); HEMOGLOBIN 11.3 g/dl (12.0-16.0); LYMPHOCYTES # (AUTO) 0.4 X10'3 (1.1-4.8); LYMPHOCYTES % (AUTO) 3.6 % (21-51); MEAN CORPUSCULAR HGB CONC 32.9 g/dL (33.0-36.5); MEAN CORPUSCULAR VOLUME 79.1 FL (78-98); MONOCYTES # (AUTO) 0.8 X10'3 (0-0.9); MONOCYTES % (AUTO) 8.3 % (2-12); NEUTROPHILS # (AUTO) 8.7 X10'3 (1.8-7.7); PLATELET COUNT 235 X10'3 (140-440); RED BLOOD COUNT 4.34 X10'6 (4.20-5.60); RED CELL DISTRIBUTION WIDTH 22.1 % (11.5-14.5); WHITE BLOOD COUNT 9.9 X10'3 (4.5-11.0)
[2023-06-28 06:43] LABS: ALBUMIN 3.1 G/DL (3.4-5.0); ALBUMIN/GLOBULIN RATIO 0.9 (1.1-1.5); ALKALINE PHOSPHATASE 84 IU/L (46-116); ANION GAP 11 (8-16); BILIRUBIN,TOTAL 1.2 MG/DL (0.1-1.0); BLOOD UREA NITROGEN 76 MG/DL (7-18); CALCIUM 7.8 MG/DL (8.5-10.1); CHLORIDE 98 MMOL/L (99-107); GLUCOSE 154 MG/DL (70-104); POTASSIUM 3.6 MMOL/L (3.5-5.1); SODIUM 139 MMOL/L (135-145); TOTAL PROTEIN 6.5 G/DL (6.4-8.2); eCRCL 26 ML/MIN; eGFR 21 ML/MIN
[2023-06-28 06:44] LABS: ALANINE AMINOTRANSFERASE 1433 U/L (12-78); ASPARTATE AMINO TRANSFERASE 1747 U/L (10-37)
[2023-06-28] MEDS ORDERED: predniSONE 20 mg tablet PO SCH (08:00)
[2023-06-28] MEDS: predniSONE 20 mg tablet PO SCH (08:35)
[2023-06-29 02:36] LABS: TOTAL PROTEIN,URINE RANDOM 14.3 MG/DL
[2023-06-29 03:00] VITALS: PULSE 71; RESP 16; O2SAT 94
[2023-06-29 03:09] VITALS: PULSE 74; RESP 16
[2023-06-29 07:00] VITALS: BP 110/65; PULSE 73; RESP 8; TEMP 98.2; O2SAT 100
[2023-06-29 07:17] LABS: BASOPHILS % (AUTO) 0.1 % (0-1); HEMOGLOBIN 11.1 g/dl (12.0-16.0); LYMPHOCYTES # (AUTO) 0.6 X10'3 (1.1-4.8); LYMPHOCYTES % (AUTO) 5.9 % (21-51)
[2023-06-29 07:18] LABS: EOSINOPHILS % (AUTO) 0 % (0-6); HEMATOCRIT 34.4 % (35.0-45.0); MEAN CORPUSCULAR HEMOGLOBIN 25.4 PG (27.0-31.0); MEAN CORPUSCULAR HGB CONC 32.4 g/dL (33.0-36.5); MEAN CORPUSCULAR VOLUME 78.5 FL (78-98); MEAN PLATELET VOLUME 10.3 FL (7.4-10.4); MONOCYTES # (AUTO) 1.6 X10'3 (0-0.9); MONOCYTES % (AUTO) 14.7 % (2-12); NEUTROPHILS # (AUTO) 8.4 X10'3 (1.8-7.7); NEUTROPHILS % (AUTO) 79.3 % (42-75); PLATELET COUNT 216 X10'3 (140-440); RED BLOOD COUNT 4.38 X10'6 (4.20-5.60); RED CELL DISTRIBUTION WIDTH 21.7 % (11.5-14.5); WHITE BLOOD COUNT 10.6 X10'3 (4.5-11.0)
[2023-06-29 07:21] LABS: ALBUMIN/GLOBULIN RATIO 0.9 (1.1-1.5); ALKALINE PHOSPHATASE 103 IU/L (46-116); ANION GAP 9 (8-16); ASPARTATE AMINO TRANSFERASE 558 U/L (10-37); BILIRUBIN,TOTAL 0.8 MG/DL (0.1-1.0); BLOOD UREA NITROGEN 79 MG/DL (7-18); BUN/CREATININE RATIO 35.7 (10.0-20.0); CALCIUM 8.3 MG/DL (8.5-10.1); CHLORIDE 99 MMOL/L (99-107); CREATININE 2.21 MG/DL (0.40-0.90); GLUCOSE 189 MG/DL (70-104); PHOSPHORUS 4.8 MG/DL (2.3-4.5); POTASSIUM 3.7 MMOL/L (3.5-5.1); SODIUM 138 MMOL/L (135-145); TOTAL PROTEIN 6.5 G/DL (6.4-8.2); eCRCL 27 ML/MIN; eGFR 22 ML/MIN
[2023-06-29 07:22] LABS: ALANINE AMINOTRANSFERASE 1075 U/L (12-78)
[2023-06-29 08:18] VITALS: PULSE 76; RESP 16; O2SAT 100
[2023-06-29 08:22] LABS: ANISOCYTOSIS 3+; MICROCYTOSIS 1+; PLATELET ESTIMATE NORMAL
[2023-06-29 08:23] LABS: ELLIPTOCYTES FEW; POLYCHROMASIA FEW; TARGET CELLS FEW; TEAR DROP CELLS FEW
[2023-06-29 11:23] VITALS: BP 96/49; PULSE 70; RESP 8; TEMP 98.1; O2SAT 99
[2023-06-29] MEDS ORDERED: losartan 25mg tablet PO SCH (12:27)
== END 2023-06-29 15:30 | disposition home health service (06) | DRG 280 ==
LOC: ER 09:59 → ED HOLD 12:35 → EDBEDREQ 14:19 → ORTHO 4S 17:35 → PCU 3S 06-25 10:45
PROVIDERS: ADMIT Family Medicine; ATTEND Family Medicine
PROC: 5A09357 Assistance with Respiratory Ventilation, Less than 24 Consecutive Hours, Continuous Positive Airway Pressure (ICD-10-PCS; principal; 2023-06-25)
PROC: 5A09357 Assistance with Respiratory Ventilation, Less than 24 Consecutive Hours, Continuous Positive Airway Pressure (ICD-10-PCS; 2023-06-26)
DX: I13.0 Hypertensive heart and chronic kidney disease with heart failure and stage 1 through stage 4 chronic kidney disease, or unspecified chronic kidney disease (principal); I21.A1 Myocardial infarction type 2; I50.43 Acute on chronic combined systolic (congestive) and diastolic (congestive) heart failure; J96.20 Acute and chronic respiratory failure, unspecified whether with hypoxia or hypercapnia; N17.9 Acute kidney failure, unspecified; Z66 Do not resuscitate; N18.9 Chronic kidney disease, unspecified; J45.909 Unspecified asthma, uncomplicated; E11.42 Type 2 diabetes mellitus with diabetic polyneuropathy; E11.22 Type 2 diabetes mellitus with diabetic chronic kidney disease; E78.00 Pure hypercholesterolemia, unspecified; E87.6 Hypokalemia; Z87.11 Personal history of peptic ulcer disease; Z85.3 Personal history of malignant neoplasm of breast; Z87.440 Personal history of urinary (tract) infections; Z87.01 Personal history of pneumonia (recurrent); Z83.3 Family history of diabetes mellitus; Z88.0 Allergy status to penicillin; Z88.5 Allergy status to narcotic agent; Z91.040 Latex allergy status; Z79.899 Other long term (current) drug therapy; Z79.82 Long term (current) use of aspirin; Z79.02 Long term (current) use of antithrombotics/antiplatelets; Z87.891 Personal history of nicotine dependence
CPT/HCPCS: 36415; 36600; 71045; 80048; 80053; 80061; 82570; 82803; 82948; 83735; 83880; 83935; 84100; 84132; 84133; 84145; 84156; 84300; 84439; 84443; 84484; 85008; 85018; 85025; 85610; 87081; 87207; 93005; 93306; 94640; 94660; 94760; 94799; 97116; 97161; 97530; 99285; A4314; A4615; G0378; J0696; J1644; J1815; J1940; J2060; J2930; J3480; J7040; J7512

== ENCOUNTER 2023-07-01 07:51 | Inpatient (IN) | payer MEDICARE ==
[2023-07-01] VITALS (7 sets, daily range): BP systolic 109–112; BP diastolic 47–56; PULSE 72–94; RESP 16–26; TEMP 97.9–98.2; O2SAT 96–99
[~2023-07-01] VITALS: Ht 177.8 cm; Wt 93.4 kg
[~2023-07-01 07:51] MED LIST changes: -ASPI-1071 PO; -CARV6.253 PO; -ESOM40CA49 PO; -FEXO-271 PO; +LOSA25TA41 PO; -SACU1TAB PO; -SPIR25TA5 PO
[2023-07-01 09:51] LABS: EOSINOPHILS % (AUTO) 0.1 % (0-6); HEMOGLOBIN 13.1 g/dl (12.0-16.0); LYMPHOCYTES # (AUTO) 0.4 X10'3 (1.1-4.8)
[2023-07-01 09:53] LABS: BASOPHILS % (AUTO) 0.1 % (0-1); HEMATOCRIT 41.4 % (35.0-45.0); LYMPHOCYTES % (AUTO) 2.4 % (21-51); MEAN CORPUSCULAR HEMOGLOBIN 24.9 PG (27.0-31.0); MEAN CORPUSCULAR HGB CONC 31.6 g/dL (33.0-36.5); MEAN CORPUSCULAR VOLUME 78.8 FL (78-98); MEAN PLATELET VOLUME 10.4 FL (7.4-10.4); MONOCYTES # (AUTO) 0.9 X10'3 (0-0.9); MONOCYTES % (AUTO) 5.8 % (2-12); NEUTROPHILS # (AUTO) 13.8 X10'3 (1.8-7.7); NEUTROPHILS % (AUTO) 91.6 % (42-75); PLATELET COUNT 246 X10'3 (140-440); RED BLOOD COUNT 5.25 X10'6 (4.20-5.60); RED CELL DISTRIBUTION WIDTH 21.5 % (11.5-14.5)
[2023-07-01 10:24] LABS: ALANINE AMINOTRANSFERASE 675 U/L (12-78); ALBUMIN 3.6 G/DL (3.4-5.0); ALBUMIN/GLOBULIN RATIO 0.9 (1.1-1.5); ALKALINE PHOSPHATASE 119 IU/L (46-116); ANION GAP 13 (8-16); ASPARTATE AMINO TRANSFERASE 147 U/L (10-37); BLOOD UREA NITROGEN 55 MG/DL (7-18); BUN/CREATININE RATIO 39.6 (10.0-20.0); CHLORIDE 102 MMOL/L (99-107); CREATININE 1.39 MG/DL (0.40-0.90); GLUCOSE 137 MG/DL (70-104); PRO BRAIN NATRIURETIC PEPTIDE 27150 PG/ML (0-125); SODIUM 143 MMOL/L (135-145); TOTAL CARBON DIOXIDE 27.7 MMOL/L (24-32); TOTAL PROTEIN 7.4 G/DL (6.4-8.2); eCRCL 42 ML/MIN; eGFR 38 ML/MIN
[2023-07-01 10:25] LABS: POTASSIUM 3.7 MMOL/L (3.5-5.1)
[2023-07-01 10:27] LABS: POLYCHROMASIA 1+
[2023-07-01 10:28] LABS: HYPOCHROMASIA 1+; TARGET CELLS FEW
[2023-07-01 10:29] LABS: ANISOCYTOSIS 3+; MICROCYTOSIS 1+
[2023-07-01] MEDS: ipratropium/albuterol 3ml nebule NEB ONE (10:31)
[2023-07-01 10:33] LABS: PLATELET ESTIMATE NORMAL
[2023-07-01] MEDS: furosemide 40mg/4ml inj IV ONE (11:57)
[2023-07-01] MEDS ORDERED: dextrose 50%-water 50ml dispensing syringe IV PRN ×2 (12:10)
[2023-07-01] MEDS ORDERED: potassium Cl 20 mEq SR tablet PO PRN (12:10)
[2023-07-01] MEDS ORDERED: DEXTROSE 15 GM of carb/4 tabs (each vial/BOTTLE has 4 tablets) PO PRN ×2 (12:10)
[2023-07-01] MEDS ORDERED: magnesium Cl slow-release 64mg tablet PO PRN (12:10)
[2023-07-01] MEDS ORDERED: acetaminophen 325mg tablet PO PRN (12:10)
[2023-07-01] MEDS ORDERED: potassium Cl 40MEQ/1/2NS 520ml 520 ML IV PRN (12:10)
[2023-07-01] MEDS ORDERED: glucagon, human recombinant 1mg kit SUBCUT PRN (12:10)
[2023-07-01] MEDS ORDERED: magnesium 4gm in 100ml NS 100 ML IV PRN (12:10)
[2023-07-01] MEDS: MESSAGE TO PHARMACY PO ONE (12:10)
[2023-07-01] MEDS ORDERED: magnesium 2GM in 50ml NS 50 ML IV PRN (12:10)
[2023-07-01] MEDS ORDERED: ondansetron/PF 4mg/2ml inj IV PRN (12:10)
[2023-07-01] MEDS: docusate sod 100mg capsule PO SCH (20:00)
[2023-07-01] MEDS: insulin glargine (Lantus) pen - multi-dose SQ SCH (21:00)
[2023-07-01] MEDS: K and/or MAG REPLACEMENT MC SCH (22:31)
[2023-07-01] MEDS: furosemide 10 MG/1 ML 10ml inj IV SCH (22:31)
[2023-07-01] MEDS: heparin, porcine 5000 units/ml vial SQ SCH (22:32)
[2023-07-02] VITALS (8 sets, daily range): BP systolic 101–134; BP diastolic 51–69; PULSE 72–95; RESP 12–18; TEMP 97.3–98; O2SAT 95–100
[2023-07-02 09:07] LABS: BASOPHILS # (AUTO) 0.1 X10'3 (0-0.2); BASOPHILS % (AUTO) 0.6 % (0-1); EOSINOPHILS # (AUTO) 0.3 X10'3 (0-0.9); EOSINOPHILS % (AUTO) 2.4 % (0-6); HEMOGLOBIN 13.4 g/dl (12.0-16.0); LYMPHOCYTES # (AUTO) 0.9 X10'3 (1.1-4.8); LYMPHOCYTES % (AUTO) 7.7 % (21-51); MEAN CORPUSCULAR HEMOGLOBIN 25.1 PG (27.0-31.0); MEAN CORPUSCULAR HGB CONC 31.8 g/dL (33.0-36.5); MEAN CORPUSCULAR VOLUME 78.9 FL (78-98); MEAN PLATELET VOLUME 10.5 FL (7.4-10.4); MONOCYTES # (AUTO) 0.6 X10'3 (0-0.9); MONOCYTES % (AUTO) 5.5 % (2-12); NEUTROPHILS # (AUTO) 9.3 X10'3 (1.8-7.7); NEUTROPHILS % (AUTO) 83.8 % (42-75); PLATELET COUNT 231 X10'3 (140-440); RED BLOOD COUNT 5.32 X10'6 (4.20-5.60); RED CELL DISTRIBUTION WIDTH 21.8 % (11.5-14.5); WHITE BLOOD COUNT 11.1 X10'3 (4.5-11.0)
[2023-07-02] MEDS: mag hydrox/Alum hydrox/simeth 30ml oral suspension PO PRN (10:53)
[2023-07-02 11:58] LABS: ALANINE AMINOTRANSFERASE 512 U/L (12-78); ALBUMIN 3.3 G/DL (3.4-5.0); ALBUMIN/GLOBULIN RATIO 0.8 (1.1-1.5); ALKALINE PHOSPHATASE 109 IU/L (46-116); ANION GAP 22 (8-16); ASPARTATE AMINO TRANSFERASE 82 U/L (10-37); BILIRUBIN,TOTAL 1.8 MG/DL (0.1-1.0); BLOOD UREA NITROGEN 42 MG/DL (7-18); BUN/CREATININE RATIO 33.9 (10.0-20.0); CALCIUM 8.9 MG/DL (8.5-10.1); CHLORIDE 101 MMOL/L (99-107); CREATININE 1.24 MG/DL (0.40-0.90); GLUCOSE 156 MG/DL (70-104); MAGNESIUM 2.5 MG/DL (1.5-2.4); POTASSIUM 3.6 MMOL/L (3.5-5.1); SODIUM 147 MMOL/L (135-145); TOTAL CARBON DIOXIDE 24.3 MMOL/L (24-32); TOTAL PROTEIN 7.5 G/DL (6.4-8.2); eCRCL 48 ML/MIN; eGFR 43 ML/MIN
[2023-07-02] MEDS: losartan 25mg tablet PO SCH (16:08)
[2023-07-02] MEDS: clopidogrel 75mg tablet PO SCH (16:09)
[2023-07-02] MEDS: insulin Lispro (HumaLOG) vial - multi-dose SQ SCH (18:51)
[2023-07-02] MEDS: pregabalin 75mg capsule PO SCH (19:33)
[2023-07-02] MEDS: bisacodyl 10mg suppository rectal RC PRN (19:33)
[2023-07-02] MEDS: duloxetine 30mg CAPSULE.DR PO SCH (21:14)
[2023-07-02] MEDS: atorvastatin 20mg tablet PO SCH (21:14)
[2023-07-03] VITALS (14 sets, daily range): BP systolic 107–136; BP diastolic 53–78; PULSE 56–84; RESP 10–18; TEMP 96.5–98.2; O2SAT 95–99
[2023-07-03] MEDS: magnesium hydroxide 30ml (MOM) UD suspension PO PRN (06:10)
[2023-07-03 07:03] LABS: BASOPHILS % (AUTO) 0.2 % (0-1); EOSINOPHILS # (AUTO) 0.3 X10'3 (0-0.9); EOSINOPHILS % (AUTO) 2.4 % (0-6); HEMATOCRIT 38.6 % (35.0-45.0); HEMOGLOBIN 12.2 g/dl (12.0-16.0); LYMPHOCYTES # (AUTO) 0.8 X10'3 (1.1-4.8); LYMPHOCYTES % (AUTO) 6.9 % (21-51); MEAN CORPUSCULAR HEMOGLOBIN 24.7 PG (27.0-31.0); MEAN CORPUSCULAR HGB CONC 31.7 g/dL (33.0-36.5); MEAN PLATELET VOLUME 10.2 FL (7.4-10.4); MONOCYTES # (AUTO) 0.8 X10'3 (0-0.9); MONOCYTES % (AUTO) 6.7 % (2-12); NEUTROPHILS # (AUTO) 10.1 X10'3 (1.8-7.7); NEUTROPHILS % (AUTO) 83.8 % (42-75); PLATELET COUNT 210 X10'3 (140-440); RED BLOOD COUNT 4.95 X10'6 (4.20-5.60); RED CELL DISTRIBUTION WIDTH 21.6 % (11.5-14.5)
[2023-07-03 07:22] LABS: ALANINE AMINOTRANSFERASE 356 U/L (12-78); ALBUMIN 3.1 G/DL (3.4-5.0); ALBUMIN/GLOBULIN RATIO 0.8 (1.1-1.5); ALKALINE PHOSPHATASE 106 IU/L (46-116); ANION GAP 7 (8-16); ASPARTATE AMINO TRANSFERASE 45 U/L (10-37); BILIRUBIN,TOTAL 1.7 MG/DL (0.1-1.0); BLOOD UREA NITROGEN 32 MG/DL (7-18); BUN/CREATININE RATIO 25.4 (10.0-20.0); CALCIUM 9.1 MG/DL (8.5-10.1); CHLORIDE 102 MMOL/L (99-107); CREATININE 1.26 MG/DL (0.40-0.90); GLUCOSE 156 MG/DL (70-104); MAGNESIUM 2.2 MG/DL (1.5-2.4); POTASSIUM 3.4 MMOL/L (3.5-5.1); SODIUM 145 MMOL/L (135-145); TOTAL CARBON DIOXIDE 36.4 MMOL/L (24-32); TOTAL PROTEIN 6.9 G/DL (6.4-8.2); eCRCL 47 ML/MIN; eGFR 42 ML/MIN
[2023-07-03] MEDS: DAPAGLIFLOZIN 10MG TABLET PO SCH (08:03)
[2023-07-03] MEDS: potassium Cl 20 mEq SR tablet PO PRN (08:17)
[2023-07-03 10:45] LABS: HEMOGLOBIN A1C 6.8 % (4.5-6.2)
[2023-07-03] MEDS: ipratropium/albuterol 3ml nebule NEB PRN (11:19)
[2023-07-04] VITALS (13 sets, daily range): BP systolic 95–131; BP diastolic 36–65; PULSE 71–91; RESP 11–20; TEMP 97.6–98.2; O2SAT 96–98
[2023-07-04 06:56] LABS: BASOPHILS % (AUTO) 0.3 % (0-1); EOSINOPHILS # (AUTO) 0.3 X10'3 (0-0.9); EOSINOPHILS % (AUTO) 2.6 % (0-6); HEMATOCRIT 36.5 % (35.0-45.0); HEMOGLOBIN 11.7 g/dl (12.0-16.0); LYMPHOCYTES # (AUTO) 1.3 X10'3 (1.1-4.8); LYMPHOCYTES % (AUTO) 11.4 % (21-51); MEAN CORPUSCULAR VOLUME 78.2 FL (78-98); MONOCYTES # (AUTO) 0.8 X10'3 (0-0.9); MONOCYTES % (AUTO) 6.8 % (2-12); NEUTROPHILS # (AUTO) 9.2 X10'3 (1.8-7.7); NEUTROPHILS % (AUTO) 78.9 % (42-75); PLATELET COUNT 192 X10'3 (140-440); RED BLOOD COUNT 4.68 X10'6 (4.20-5.60); RED CELL DISTRIBUTION WIDTH 21.6 % (11.5-14.5); WHITE BLOOD COUNT 11.6 X10'3 (4.5-11.0)
[2023-07-04 07:34] LABS: ALANINE AMINOTRANSFERASE 240 U/L (12-78); ALBUMIN 2.9 G/DL (3.4-5.0); ALBUMIN/GLOBULIN RATIO 0.8 (1.1-1.5); ALKALINE PHOSPHATASE 93 IU/L (46-116); ANION GAP 8 (8-16); ASPARTATE AMINO TRANSFERASE 27 U/L (10-37); BILIRUBIN,TOTAL 1.4 MG/DL (0.1-1.0); BLOOD UREA NITROGEN 27 MG/DL (7-18); BUN/CREATININE RATIO 20.8 (10.0-20.0); CALCIUM 8.7 MG/DL (8.5-10.1); CHLORIDE 100 MMOL/L (99-107); GLUCOSE 126 MG/DL (70-104); MAGNESIUM 2.2 MG/DL (1.5-2.4); POTASSIUM 3.9 MMOL/L (3.5-5.1); SODIUM 141 MMOL/L (135-145); TOTAL CARBON DIOXIDE 33.5 MMOL/L (24-32); TOTAL PROTEIN 6.5 G/DL (6.4-8.2); eCRCL 45 ML/MIN; eGFR 41 ML/MIN
[2023-07-04] MEDS: losartan 25mg tablet PO SCH (08:00)
[2023-07-04 08:18] LABS: ANISOCYTOSIS 3+; MICROCYTOSIS 1+; PLATELET ESTIMATE NORMAL; SCHISTOCYTES FEW; STOMATOCYTES 1+
[2023-07-04 08:19] LABS: TARGET CELLS FEW
[2023-07-04] MEDS: enoxaparin 40mg/0.4ml syringe SUBCUT SCH (20:51)
[2023-07-05] VITALS (13 sets, daily range): BP systolic 92–109; BP diastolic 51–77; PULSE 70–88; RESP 11–18; TEMP 97.1–97.8; O2SAT 92–100
[2023-07-05 06:32] LABS: BASOPHILS % (AUTO) 0.1 % (0-1); EOSINOPHILS # (AUTO) 0.2 X10'3 (0-0.9); EOSINOPHILS % (AUTO) 1.8 % (0-6); HEMATOCRIT 37.6 % (35.0-45.0); HEMOGLOBIN 12.3 g/dl (12.0-16.0); LYMPHOCYTES # (AUTO) 1.2 X10'3 (1.1-4.8); LYMPHOCYTES % (AUTO) 10.9 % (21-51); MEAN CORPUSCULAR HEMOGLOBIN 25.7 PG (27.0-31.0); MEAN CORPUSCULAR HGB CONC 32.7 g/dL (33.0-36.5); MEAN CORPUSCULAR VOLUME 78.6 FL (78-98); MEAN PLATELET VOLUME 10.3 FL (7.4-10.4); MONOCYTES # (AUTO) 0.7 X10'3 (0-0.9); MONOCYTES % (AUTO) 6.4 % (2-12); NEUTROPHILS # (AUTO) 8.5 X10'3 (1.8-7.7); NEUTROPHILS % (AUTO) 80.8 % (42-75); PLATELET COUNT 202 X10'3 (140-440); RED BLOOD COUNT 4.79 X10'6 (4.20-5.60); WHITE BLOOD COUNT 10.5 X10'3 (4.5-11.0)
[2023-07-05 07:06] LABS: ALANINE AMINOTRANSFERASE 195 U/L (12-78); ALBUMIN 3.1 G/DL (3.4-5.0); ALBUMIN/GLOBULIN RATIO 0.8 (1.1-1.5); ALKALINE PHOSPHATASE 103 IU/L (46-116); ANION GAP 12 (8-16); ASPARTATE AMINO TRANSFERASE 33 U/L (10-37); BILIRUBIN,TOTAL 1.4 MG/DL (0.1-1.0); BLOOD UREA NITROGEN 33 MG/DL (7-18); BUN/CREATININE RATIO 24.8 (10.0-20.0); CALCIUM 8.9 MG/DL (8.5-10.1); CHLORIDE 98 MMOL/L (99-107); CREATININE 1.33 MG/DL (0.40-0.90); GLUCOSE 116 MG/DL (70-104); MAGNESIUM 2.3 MG/DL (1.5-2.4); POTASSIUM 3.6 MMOL/L (3.5-5.1); SODIUM 140 MMOL/L (135-145); TOTAL CARBON DIOXIDE 29.8 MMOL/L (24-32); eCRCL 44 ML/MIN; eGFR 40 ML/MIN
[2023-07-05] MEDS: LidoCAINE 2% Topical Jelly 11mL syringe TOP ONE (12:30)
[2023-07-06 03:03] VITALS: PULSE 74; RESP 16; O2SAT 96
[2023-07-06 06:00] VITALS: BP 101/52; PULSE 91; RESP 16; TEMP 97.6; O2SAT 100
[2023-07-06 06:40] LABS: BASOPHILS # (AUTO) 0.1 X10'3 (0-0.2); BASOPHILS % (AUTO) 0.6 % (0-1); EOSINOPHILS # (AUTO) 0.3 X10'3 (0-0.9); EOSINOPHILS % (AUTO) 3.2 % (0-6); HEMATOCRIT 34.9 % (35.0-45.0); HEMOGLOBIN 11.5 g/dl (12.0-16.0); LYMPHOCYTES # (AUTO) 1.3 X10'3 (1.1-4.8); LYMPHOCYTES % (AUTO) 15.8 % (21-51); MEAN CORPUSCULAR HEMOGLOBIN 25.5 PG (27.0-31.0); MEAN CORPUSCULAR HGB CONC 32.9 g/dL (33.0-36.5); MEAN CORPUSCULAR VOLUME 77.5 FL (78-98); MEAN PLATELET VOLUME 9.8 FL (7.4-10.4); MONOCYTES # (AUTO) 0.7 X10'3 (0-0.9); MONOCYTES % (AUTO) 8.1 % (2-12); NEUTROPHILS # (AUTO) 5.8 X10'3 (1.8-7.7); NEUTROPHILS % (AUTO) 72.3 % (42-75); PLATELET COUNT 199 X10'3 (140-440); RED CELL DISTRIBUTION WIDTH 21.2 % (11.5-14.5); WHITE BLOOD COUNT 8.1 X10'3 (4.5-11.0)
[2023-07-06 07:10] LABS: ALANINE AMINOTRANSFERASE 146 U/L (12-78); ALBUMIN 2.8 G/DL (3.4-5.0); ALBUMIN/GLOBULIN RATIO 0.8 (1.1-1.5); ALKALINE PHOSPHATASE 96 IU/L (46-116); ANION GAP 7 (8-16); ASPARTATE AMINO TRANSFERASE 29 U/L (10-37); BILIRUBIN,TOTAL 1.3 MG/DL (0.1-1.0); BLOOD UREA NITROGEN 29 MG/DL (7-18); BUN/CREATININE RATIO 18.6 (10.0-20.0); CHLORIDE 97 MMOL/L (99-107); CREATININE 1.56 MG/DL (0.40-0.90); GLUCOSE 141 MG/DL (70-104); POTASSIUM 3.4 MMOL/L (3.5-5.1); SODIUM 136 MMOL/L (135-145); TOTAL PROTEIN 6.4 G/DL (6.4-8.2); eCRCL 38 ML/MIN; eGFR 33 ML/MIN
[2023-07-06 08:00] VITALS: RESP 14; O2SAT 98
[2023-07-06] MEDS ORDERED: potassium Cl 20 mEq SR tablet PO PRN ×2 (09:25)
[2023-07-06] MEDS ORDERED: magnesium Cl slow-release 64mg tablet PO PRN (09:25)
[2023-07-06] MEDS ORDERED: magnesium 4gm in 100ml NS 100 ML IV PRN (09:25)
[2023-07-06] MEDS ORDERED: magnesium 2GM in 50ml NS 50 ML IV PRN (09:25)
[2023-07-06] MEDS ORDERED: potassium Cl 40MEQ/1/2NS 520ml 520 ML IV PRN (09:25)
[2023-07-06 10:00] VITALS: BP 115/53; PULSE 70; RESP 18; TEMP 97.3; O2SAT 95
[2023-07-06 10:12] LABS: ANISOCYTOSIS 3+; MICROCYTOSIS 1+; PLATELET ESTIMATE NORMAL; STOMATOCYTES 2+
[2023-07-06 10:13] LABS: HYPOCHROMASIA 1+; POIKILOCYTOSIS FEW
[2023-07-06] MEDS ORDERED: K and/or MAG REPLACEMENT MC SCH (20:00)
== END 2023-07-06 11:30 | DRG 291 ==
LOC: ER 07:52 → ED HOLD 12:24 → EDBEDREQ 16:39 → ORTHO 4S 18:56
PROVIDERS: ADMIT Internal Medicine; ATTEND Internal Medicine
DX: I13.0 Hypertensive heart and chronic kidney disease with heart failure and stage 1 through stage 4 chronic kidney disease, or unspecified chronic kidney disease (principal); I50.43 Acute on chronic combined systolic (congestive) and diastolic (congestive) heart failure; N17.9 Acute kidney failure, unspecified; E78.00 Pure hypercholesterolemia, unspecified; G89.29 Other chronic pain; E11.42 Type 2 diabetes mellitus with diabetic polyneuropathy; N18.9 Chronic kidney disease, unspecified; R74.01 Elevation of levels of liver transaminase levels; E11.22 Type 2 diabetes mellitus with diabetic chronic kidney disease; R33.9 Retention of urine, unspecified; Z88.5 Allergy status to narcotic agent; Z91.040 Latex allergy status; Z79.01 Long term (current) use of anticoagulants; Z88.0 Allergy status to penicillin; Z79.899 Other long term (current) drug therapy; Z79.4 Long term (current) use of insulin; Z85.3 Personal history of malignant neoplasm of breast; Z87.11 Personal history of peptic ulcer disease
CPT/HCPCS: 36415; 71045; 80053; 82948; 83036; 83735; 83880; 84145; 84484; 85008; 85025; 87081; 93005; 94640; 94760; 96374; 97116; 97161; 97530; 99285; A4314; A4615; A5200; A6250; A6258; A6446; A6449; C1758; G0378; J1644; J1650; J1815; J1940

== ENCOUNTER 2023-08-04 09:01 | Emergency (ER) | payer MEDICARE ==
[~2023-08-04] VITALS: Ht 177.8 cm; Wt 90.9 kg
[2023-08-04 09:18] VITALS: BP 128/67; PULSE 67; RESP 20; TEMP 97.1; O2SAT 95
[2023-08-04 10:23] LABS: ALANINE AMINOTRANSFERASE 40 U/L (12-78); ALBUMIN/GLOBULIN RATIO 0.7 (1.1-1.5); ANION GAP 14 (8-16); ASPARTATE AMINO TRANSFERASE 24 U/L (10-37); BILIRUBIN,TOTAL 1.6 MG/DL (0.1-1.0); BLOOD UREA NITROGEN 21 MG/DL (7-18); BUN/CREATININE RATIO 45.7 (10.0-20.0); CALCIUM 9.1 MG/DL (8.5-10.1); CHLORIDE 94 MMOL/L (99-107); CREATININE 0.46 MG/DL (0.40-0.90); GLUCOSE 161 MG/DL (70-104); POTASSIUM 3.6 MMOL/L (3.5-5.1); PRO BRAIN NATRIURETIC PEPTIDE 19666 PG/ML (0-125); SODIUM 133 MMOL/L (135-145); TOTAL CARBON DIOXIDE 25.4 MMOL/L (24-32); TOTAL PROTEIN 7.5 G/DL (6.4-8.2); eCRCL 128 ML/MIN; eGFR > 90 ML/MIN
[2023-08-04 10:26] LABS: ALKALINE PHOSPHATASE 105 IU/L (46-116)
[2023-08-05] MEDS ORDERED: FURO40TA4 PO (00:53)
[2023-08-05] MEDS ORDERED: IPRA3AMP9 NEB (14:19)
[2023-08-05] MEDS ORDERED: MAGN400O6 PO (14:22)
[2023-08-05] MEDS ORDERED: MULT-381 PO (14:23)
[2023-08-05] MEDS ORDERED: SIME80TA15 PO (14:24)
[2023-08-05] MEDS ORDERED: POTA-366 PO (14:26)
[2023-08-05] MEDS ORDERED: ACID1TAB2 PO (14:29)
[2023-08-05] MEDS ORDERED: BISA-155 PO (14:30)
[2023-08-05] MEDS ORDERED: BISA10SU11 RC (14:33)
[2023-08-05] MEDS ORDERED: INSU100I29 (14:38)
[2023-08-05] MEDS ORDERED: DULA0.75 SUBCUT (15:03)
== END 2023-08-04 17:00 | disposition left against medical advice (07) ==
LOC: ER 09:02
DX: R06.02 Shortness of breath (principal); Z53.21 Procedure and treatment not carried out due to patient leaving prior to being seen by health care provider
CPT/HCPCS: 36415; 71045; 80053; 83880; 93005; 99281

== ENCOUNTER 2023-08-04 17:01 | Inpatient (IN) | payer MEDICARE ==
[~2023-08-04] VITALS: Ht 177.8 cm; Wt 100.0 kg
[2023-08-05] VITALS (14 sets, daily range): BP systolic 101–161; BP diastolic 59–120; PULSE 65–94; RESP 14–22; TEMP 96.6–97.8; O2SAT 83–99
[2023-08-05] MEDS: furosemide 10 MG/1 ML 10ml inj IV ONE (00:13)
[2023-08-05] MEDS ORDERED: potassium Cl 40MEQ/1/2NS 520ml 520 ML IV PRN (00:40)
[2023-08-05] MEDS ORDERED: ondansetron/PF 4mg/2ml inj IV PRN (00:40)
[2023-08-05] MEDS ORDERED: magnesium 4gm in 100ml NS 100 ML IV PRN (00:40)
[2023-08-05] MEDS ORDERED: potassium Cl 20 mEq SR tablet PO PRN ×2 (00:40)
[2023-08-05] MEDS ORDERED: acetaminophen 325mg tablet PO PRN (00:40)
[2023-08-05] MEDS ORDERED: magnesium Cl slow-release 64mg tablet PO PRN (00:40)
[2023-08-05] MEDS ORDERED: FURO40TA4 PO (00:53)
[2023-08-05] MEDS ORDERED: iohexol 350MG/ML 100ml bottle IV ONE (01:19)
[2023-08-05] MEDS: MESSAGE TO PHARMACY PO SCH (02:44)
[2023-08-05 03:46] LABS: BILIRUBIN,URINE NEGATIVE (Neg); CLARITY,URINE TURBID (Clear); COLOR,URINE YELLOW (Yellow); GLUCOSE, URINE 500 mg/dl (Neg); KETONES,URINE NEGATIVE (Neg); LEUKOCYTE ESTERASE ,URINE LARGE (Neg); NITRITES, URINE NEGATIVE (Neg); OCCULT BLOOD,URINE LARGE (Neg); PH,URINE 5.5 (4.8-8.0); PROTEIN,URINE 30 mg/dl (Neg); UROBILINOGEN,URINE 0.2 E.U/dL (0.2-1.0)
[2023-08-05 03:58] LABS: UA COLLECTION TYPE STRAIGHT CATH
[2023-08-05 04:00] LABS: WBC,URINE TNTC /HPF (0-4)
[2023-08-05 04:01] LABS: BACTERIA,URINE 3+ /HPF (Neg); RENAL CELLS, URINE FEW /HPF; SQUAMOUS EPITHELIAL CELL,UR FEW /LPF (FEW); TRANSITIONAL EPI CELLS,URINE FEW /HPF
[2023-08-05 04:04] LABS: YEAST FEW /HPF (NEGATIVE)
[2023-08-05] MEDS ORDERED: dextrose 50%-water 50ml dispensing syringe IV PRN ×3 (05:45→11:40)
[2023-08-05] MEDS ORDERED: glucagon, human recombinant 1mg kit SUBCUT PRN ×2 (05:45→11:40)
[2023-08-05] MEDS ORDERED: DEXTROSE 15 GM of carb/4 tabs (each vial/BOTTLE has 4 tablets) PO PRN ×3 (05:45→11:40)
[2023-08-05] MEDS: furosemide 40mg/4ml inj IV SCH ×2 (08:20→12:13)
[2023-08-05] MEDS: CefTRIAXone 2gm/D5W 50ml BAG 50 ML IV SCH (08:20)
[2023-08-05] MEDS: midodrine tablet 2.5 MG TABLET PO SCH (12:14)
[2023-08-05] MEDS: insulin Lispro (HumaLOG) vial - multi-dose SQ SCH ×3 (12:47→17:00)
[2023-08-05 14:10] LABS: BASOPHILS # (AUTO) 0.1 X10'3 (0-0.2); HEMOGLOBIN 11.7 g/dl (12.0-16.0); MEAN CORPUSCULAR HEMOGLOBIN 24.4 PG (27.0-31.0); MEAN CORPUSCULAR VOLUME 77.6 FL (78-98)
[2023-08-05 14:12] LABS: BASOPHILS % (AUTO) 0.9 % (0-1); EOSINOPHILS % (AUTO) 0.1 % (0-6); HEMATOCRIT 37.1 % (35.0-45.0); LYMPHOCYTES # (AUTO) 0.3 X10'3 (1.1-4.8); MEAN CORPUSCULAR HGB CONC 31.5 g/dL (33.0-36.5); MEAN PLATELET VOLUME 11.1 FL (7.4-10.4); MONOCYTES # (AUTO) 1.2 X10'3 (0-0.9); MONOCYTES % (AUTO) 8.6 % (2-12); NEUTROPHILS # (AUTO) 11.9 X10'3 (1.8-7.7); NEUTROPHILS % (AUTO) 88.4 % (42-75); PLATELET COUNT 195 X10'3 (140-440); RED BLOOD COUNT 4.79 X10'6 (4.20-5.60); RED CELL DISTRIBUTION WIDTH 20.8 % (11.5-14.5); WHITE BLOOD COUNT 13.4 X10'3 (4.5-11.0)
[2023-08-05] MEDS ORDERED: IPRA3AMP9 NEB (14:19)
[2023-08-05] MEDS ORDERED: MAGN400O6 PO (14:22)
[2023-08-05] MEDS ORDERED: MULT-381 PO (14:23)
[2023-08-05] MEDS ORDERED: SIME80TA15 PO (14:24)
[2023-08-05 14:26] LABS: ALANINE AMINOTRANSFERASE 35 U/L (12-78); ALBUMIN/GLOBULIN RATIO 0.7 (1.1-1.5); ALKALINE PHOSPHATASE 92 IU/L (46-116); ANION GAP 12 (8-16); ASPARTATE AMINO TRANSFERASE 21 U/L (10-37); BILIRUBIN,TOTAL 2.1 MG/DL (0.1-1.0); BLOOD UREA NITROGEN 30 MG/DL (7-18); BUN/CREATININE RATIO 18.1 (10.0-20.0); CALCIUM 9.3 MG/DL (8.5-10.1); CHLORIDE 93 MMOL/L (99-107); CREATININE 1.66 MG/DL (0.40-0.90); GLUCOSE 188 MG/DL (70-104); POTASSIUM 3.8 MMOL/L (3.5-5.1); SODIUM 135 MMOL/L (135-145); TOTAL CARBON DIOXIDE 30.2 MMOL/L (24-32); TOTAL PROTEIN 7.3 G/DL (6.4-8.2); eCRCL 36 ML/MIN; eGFR 31 ML/MIN
[2023-08-05] MEDS ORDERED: POTA-366 PO (14:26)
[2023-08-05] MEDS ORDERED: ACID1TAB2 PO (14:29)
[2023-08-05] MEDS ORDERED: BISA-155 PO (14:30)
[2023-08-05] MEDS ORDERED: BISA10SU11 RC (14:33)
[2023-08-05 14:36] LABS: PLATELET ESTIMATE NORMAL
[2023-08-05 14:37] LABS: ANISOCYTOSIS 3+; MICROCYTOSIS 1+
[2023-08-05 14:38] LABS: POLYCHROMASIA FEW; STOMATOCYTES FEW; TARGET CELLS FEW
[2023-08-05] MEDS ORDERED: INSU100I29 (14:38)
[2023-08-05 14:39] LABS: LARGE PLATELETS FEW
[2023-08-05] MEDS ORDERED: DULA0.75 SUBCUT (15:03)
[2023-08-05] MEDS: azithromycin 250mg tablet PO SCH (15:54)
[2023-08-05] MEDS: lactose-reduced food (Ensure Enlive) - 237ml bottle PO SCH (17:30)
[2023-08-05] MEDS: albuterol 2.5 MG/3 ML nebule NEB PRN (17:41)
[2023-08-05] MEDS: carVEDilol 3.125mg tablet PO SCH (20:00)
[2023-08-05] MEDS ORDERED: metolazone 2.5mg tablet PO SCH (20:00)
[2023-08-05] MEDS: ipratropium/albuterol 3ml nebule NEB SCH (20:09)
[2023-08-05] MEDS ORDERED: insulin glargine (Lantus) pen - multi-dose SQ SCH (21:00)
[2023-08-05] MEDS: atorvastatin 20mg tablet PO SCH (21:22)
[2023-08-05] MEDS: duloxetine 30mg CAPSULE.DR PO SCH (21:22)
[2023-08-05] MEDS: enoxaparin 40mg/0.4ml syringe SQ SCH (21:46)
[2023-08-05] MEDS: insulin glargine (Lantus) pen - multi-dose SQ SCH (22:11)
[2023-08-06] VITALS (15 sets, daily range): BP systolic 93–122; BP diastolic 45–76; PULSE 72–104; RESP 14–22; TEMP 97–98.1; O2SAT 93–96
[2023-08-06 07:08] LABS: BASOPHILS # (AUTO) 0.1 X10'3 (0-0.2); LYMPHOCYTES # (AUTO) 0.7 X10'3 (1.1-4.8); WHITE BLOOD COUNT 11.5 X10'3 (4.5-11.0)
[2023-08-06 07:09] LABS: EOSINOPHILS % (AUTO) 0.3 % (0-6); HEMATOCRIT 34.8 % (35.0-45.0); LYMPHOCYTES % (AUTO) 5.9 % (21-51); MEAN CORPUSCULAR HEMOGLOBIN 24.5 PG (27.0-31.0); MEAN CORPUSCULAR HGB CONC 31.7 g/dL (33.0-36.5); MEAN CORPUSCULAR VOLUME 77.3 FL (78-98); MEAN PLATELET VOLUME 11.2 FL (7.4-10.4); MONOCYTES # (AUTO) 1.2 X10'3 (0-0.9); MONOCYTES % (AUTO) 10.1 % (2-12); NEUTROPHILS # (AUTO) 9.5 X10'3 (1.8-7.7); NEUTROPHILS % (AUTO) 82.7 % (42-75); PLATELET COUNT 175 X10'3 (140-440); RED CELL DISTRIBUTION WIDTH 21.4 % (11.5-14.5)
[2023-08-06 07:24] LABS: ALANINE AMINOTRANSFERASE 37 U/L (12-78); ALBUMIN 2.9 G/DL (3.4-5.0); ALBUMIN/GLOBULIN RATIO 0.8 (1.1-1.5); ALKALINE PHOSPHATASE 84 IU/L (46-116); ANION GAP 14 (8-16); ASPARTATE AMINO TRANSFERASE 24 U/L (10-37); BILIRUBIN,TOTAL 1.8 MG/DL (0.1-1.0); BLOOD UREA NITROGEN 34 MG/DL (7-18); BUN/CREATININE RATIO 18.9 (10.0-20.0); CALCIUM 9.4 MG/DL (8.5-10.1); CHLORIDE 94 MMOL/L (99-107); GLUCOSE 150 MG/DL (70-104); POTASSIUM 3.5 MMOL/L (3.5-5.1); SODIUM 136 MMOL/L (135-145); TOTAL CARBON DIOXIDE 28.4 MMOL/L (24-32); TOTAL PROTEIN 6.7 G/DL (6.4-8.2); eCRCL 33 ML/MIN; eGFR 28 ML/MIN
[2023-08-06 07:48] LABS: ANISOCYTOSIS 3+; GIANT PLATELET FEW; LARGE PLATELETS FEW; MICROCYTOSIS 1+; PLATELET ESTIMATE NORMAL
[2023-08-06 07:49] LABS: ELLIPTOCYTES FEW; POLYCHROMASIA FEW; STOMATOCYTES FEW; TARGET CELLS FEW; TEAR DROP CELLS FEW
[2023-08-06] MEDS ORDERED: losartan 25mg tablet PO SCH (08:00)
[2023-08-06] MEDS ORDERED: DAPAGLIFLOZIN 10MG TABLET PO SCH (08:00)
[2023-08-06 08:29] LABS: ABG BASE EXCESS 4.3 mmol/L (-2.0-2.0); ABG HCO3 27.5 mmol/L (22.0-26.0); ABG OXYGEN SATURATION 94.1 % (94-97); ABG PCO2 (T) 36.3 mmHg (32.0-45.0); ABG PH (T) 7.498 (7.350-7.450); ALLEN'S TEST POSITIVE; FCOHb 1.4 % (0.0-3.9); FHHb 5.8 % (0.0-5.0); FLOW 2 L/min; FMetHb 0.3 % (0.0-1.5); FO2Hb 92.5 % (94-97); MODE NASAL CANNULA; TOTAL HEMOGLOBIN 11.5 G/dl (12.0-16.0)
[2023-08-06] MEDS: clopidogrel 75mg tablet PO SCH (10:03)
[2023-08-06 11:16] LABS: MAGNESIUM 1.8 MG/DL (1.5-2.4)
[2023-08-06] MEDS ORDERED: NYSTATIN 30 GM POWDER TP SCH (21:00)
[2023-08-06] MEDS: insulin glargine (Lantus) pen - multi-dose SQ SCH (21:16)
[2023-08-06] MEDS: lactose-reduced food (Ensure Enlive) - 237ml bottle PO SCH (21:23)
[2023-08-06] MEDS: tamsulosin 0.4mg capsule PO SCH (21:27)
[2023-08-06] MEDS: temazepam 15mg capsule PO ONE (23:01)
[2023-08-07] VITALS (15 sets, daily range): BP systolic 89–121; BP diastolic 47–91; PULSE 86–97; RESP 15–22; TEMP 97–97.9; O2SAT 90–100
[2023-08-07 07:52] LABS: BASOPHILS # (AUTO) 0.1 X10'3 (0-0.2); BASOPHILS % (AUTO) 0.9 % (0-1); EOSINOPHILS # (AUTO) 0.2 X10'3 (0-0.9); EOSINOPHILS % (AUTO) 2.3 % (0-6); HEMATOCRIT 30.7 % (35.0-45.0); HEMOGLOBIN 9.9 g/dl (12.0-16.0); LYMPHOCYTES # (AUTO) 0.7 X10'3 (1.1-4.8); LYMPHOCYTES % (AUTO) 8.6 % (21-51); MEAN CORPUSCULAR HEMOGLOBIN 24.9 PG (27.0-31.0); MEAN CORPUSCULAR HGB CONC 32.3 g/dL (33.0-36.5); MEAN CORPUSCULAR VOLUME 77.1 FL (78-98); MEAN PLATELET VOLUME 10.6 FL (7.4-10.4); MONOCYTES # (AUTO) 0.8 X10'3 (0-0.9); MONOCYTES % (AUTO) 9.9 % (2-12); NEUTROPHILS % (AUTO) 78.3 % (42-75); PLATELET COUNT 143 X10'3 (140-440); RED BLOOD COUNT 3.98 X10'6 (4.20-5.60); RED CELL DISTRIBUTION WIDTH 20.8 % (11.5-14.5); WHITE BLOOD COUNT 7.7 X10'3 (4.5-11.0)
[2023-08-07] MEDS: nystatin 15 GM powder TP SCH (08:06)
[2023-08-07 08:17] LABS: HYPOCHROMASIA 1+; LARGE PLATELETS FEW; PLATELET ESTIMATE DECREASED; POLYCHROMASIA 1+
[2023-08-07 08:18] LABS: ANISOCYTOSIS 3+; ELLIPTOCYTES FEW; MICROCYTOSIS 1+; TARGET CELLS FEW
[2023-08-07 08:19] LABS: ALANINE AMINOTRANSFERASE 26 U/L (12-78); ALBUMIN 2.6 G/DL (3.4-5.0); ALBUMIN/GLOBULIN RATIO 0.7 (1.1-1.5); ALKALINE PHOSPHATASE 91 IU/L (46-116); ANION GAP 9 (8-16); ASPARTATE AMINO TRANSFERASE 18 U/L (10-37); BILIRUBIN,TOTAL 1.5 MG/DL (0.1-1.0); BLOOD UREA NITROGEN 38 MG/DL (7-18); BUN/CREATININE RATIO 21.5 (10.0-20.0); CHLORIDE 93 MMOL/L (99-107); CREATININE 1.77 MG/DL (0.40-0.90); GLUCOSE 72 MG/DL (70-104); POTASSIUM 3.3 MMOL/L (3.5-5.1); SODIUM 136 MMOL/L (135-145); TOTAL CARBON DIOXIDE 33.9 MMOL/L (24-32); TOTAL PROTEIN 6.4 G/DL (6.4-8.2); eCRCL 33 ML/MIN; eGFR 29 ML/MIN
[2023-08-07 10:31] LABS: % IRON SATURATION 7 % (11-46); IRON 20 UG/DL (49-151); TOTAL IRON BINDING CAPACITY 288 UG/DL (259-388)
[2023-08-07 11:11] LABS: PRO BRAIN NATRIURETIC PEPTIDE > 30000 PG/ML (0-125)
[2023-08-07] MEDS ORDERED: lisinopril 5mg tablet PO SCH (13:20)
[2023-08-07] MEDS: bumetanide 0.25mg/ml 4ml vial IV SCH (13:48)
[2023-08-07] MEDS: albumin (Human) 5% 250ml 250 ML IV ONE (13:50)
[2023-08-07] MEDS: FERROUS SULFATE 142 MG TABLET.ER (45mg elemental) PO SCH (22:12)
[2023-08-08] VITALS (13 sets, daily range): BP systolic 90–136; BP diastolic 47–118; PULSE 85–92; RESP 16–20; TEMP 96–97.2; O2SAT 88–100
[2023-08-08 05:23] LABS: BASOPHILS % (AUTO) 0.4 % (0-1); EOSINOPHILS # (AUTO) 0.1 X10'3 (0-0.9); LYMPHOCYTES # (AUTO) 0.4 X10'3 (1.1-4.8); MONOCYTES # (AUTO) 0.5 X10'3 (0-0.9); RED CELL DISTRIBUTION WIDTH 20.9 % (11.5-14.5)
[2023-08-08 05:25] LABS: EOSINOPHILS % (AUTO) 1.8 % (0-6); HEMOGLOBIN 10.2 g/dl (12.0-16.0); MEAN CORPUSCULAR HEMOGLOBIN 24.9 PG (27.0-31.0); MEAN CORPUSCULAR HGB CONC 31.9 g/dL (33.0-36.5); MEAN CORPUSCULAR VOLUME 77.9 FL (78-98); MEAN PLATELET VOLUME 11.1 FL (7.4-10.4); MONOCYTES % (AUTO) 7.3 % (2-12); NEUTROPHILS # (AUTO) 5.9 X10'3 (1.8-7.7); NEUTROPHILS % (AUTO) 84.5 % (42-75); PLATELET COUNT 155 X10'3 (140-440)
[2023-08-08 05:38] LABS: ALANINE AMINOTRANSFERASE 31 U/L (12-78); ALBUMIN/GLOBULIN RATIO 0.7 (1.1-1.5); ALKALINE PHOSPHATASE 91 IU/L (46-116); ANION GAP 10 (8-16); ASPARTATE AMINO TRANSFERASE 24 U/L (10-37); BILIRUBIN,TOTAL 1.4 MG/DL (0.1-1.0); BLOOD UREA NITROGEN 40 MG/DL (7-18); BUN/CREATININE RATIO 23.5 (10.0-20.0); CALCIUM 9.3 MG/DL (8.5-10.1); CHLORIDE 93 MMOL/L (99-107); GLUCOSE 74 MG/DL (70-104); POTASSIUM 3.2 MMOL/L (3.5-5.1); PRO BRAIN NATRIURETIC PEPTIDE 22463 PG/ML (0-125); SODIUM 135 MMOL/L (135-145); TOTAL CARBON DIOXIDE 32.1 MMOL/L (24-32); TOTAL PROTEIN 7.1 G/DL (6.4-8.2); eCRCL 34 ML/MIN; eGFR 30 ML/MIN
[2023-08-08 07:28] LABS: ANISOCYTOSIS 3+; GIANT PLATELET FEW; HYPOCHROMASIA 1+; LARGE PLATELETS MODERATE; MICROCYTOSIS 1+; PLATELET ESTIMATE NORMAL; POLYCHROMASIA 1+; TARGET CELLS FEW
[2023-08-08 07:29] LABS: ELLIPTOCYTES FEW; STOMATOCYTES FEW
[2023-08-08] MEDS ORDERED: magnesium 4gm in 100ml NS 100 ML IV PRN (08:50)
[2023-08-08] MEDS ORDERED: magnesium 2GM in 50ml NS 50 ML IV PRN (08:50)
[2023-08-08] MEDS ORDERED: magnesium Cl slow-release 64mg tablet PO PRN (08:50)
[2023-08-08] MEDS: polyethylene glycol 3350 17gm powd pack PO PRN (09:41)
[2023-08-08] MEDS: potassium Cl 20 mEq SR tablet PO PRN (09:41)
[2023-08-08] MEDS: furosemide 40mg/4ml inj IV SCH (16:21)
[2023-08-08] MEDS: metolazone 2.5mg tablet PO SCH (19:31)
[2023-08-08] MEDS: potassium Cl 40MEQ/1/2NS 520ml 520 ML IV PRN (19:46)
[2023-08-08] MEDS: K and/or MAG REPLACEMENT MC SCH (19:48)
[2023-08-08] MEDS: mag hydrox/Alum hydrox/simeth 30ml oral suspension PO PRN (20:21)
[2023-08-08] MEDS: duloxetine 30mg CAPSULE.DR PO SCH (20:24)
[2023-08-08] MEDS: insulin glargine (Lantus) pen - multi-dose SQ SCH (21:09)
[2023-08-08] MEDS: LORazepam 2 mg/ml vial IV ONE (23:21)
[2023-08-09] VITALS (14 sets, daily range): BP systolic 94–111; BP diastolic 51–65; PULSE 70–111; RESP 13–21; TEMP 96–97.6; O2SAT 90–100
[2023-08-09] MEDS: dextrose 50%-water 50ml dispensing syringe IV PRN (07:11)
[2023-08-09 08:36] LABS: ALANINE AMINOTRANSFERASE 27 U/L (12-78); ALBUMIN 2.9 G/DL (3.4-5.0); ALBUMIN/GLOBULIN RATIO 0.7 (1.1-1.5); ALKALINE PHOSPHATASE 96 IU/L (46-116); ANION GAP 13 (8-16); ASPARTATE AMINO TRANSFERASE 29 U/L (10-37); BASOPHILS % (AUTO) 0.7 % (0-1); BILIRUBIN,TOTAL 1.1 MG/DL (0.1-1.0); BLOOD UREA NITROGEN 37 MG/DL (7-18); CALCIUM 8.9 MG/DL (8.5-10.1); CHLORIDE 93 MMOL/L (99-107); CREATININE 1.48 MG/DL (0.40-0.90); EOSINOPHILS # (AUTO) 0.1 X10'3 (0-0.9); EOSINOPHILS % (AUTO) 1.6 % (0-6); HEMOGLOBIN 10.8 g/dl (12.0-16.0); LYMPHOCYTES # (AUTO) 0.5 X10'3 (1.1-4.8); LYMPHOCYTES % (AUTO) 7.6 % (21-51); MEAN CORPUSCULAR HEMOGLOBIN 24.5 PG (27.0-31.0); MEAN CORPUSCULAR HGB CONC 31.8 g/dL (33.0-36.5); MEAN CORPUSCULAR VOLUME 77.1 FL (78-98); MONOCYTES # (AUTO) 0.6 X10'3 (0-0.9); MONOCYTES % (AUTO) 9.7 % (2-12); NEUTROPHILS % (AUTO) 80.4 % (42-75); PLATELET COUNT 156 X10'3 (140-440); POTASSIUM 3.5 MMOL/L (3.5-5.1); RED BLOOD COUNT 4.41 X10'6 (4.20-5.60); RED CELL DISTRIBUTION WIDTH 21.4 % (11.5-14.5); SODIUM 135 MMOL/L (135-145); TOTAL CARBON DIOXIDE 29.2 MMOL/L (24-32); TOTAL PROTEIN 6.9 G/DL (6.4-8.2); WHITE BLOOD COUNT 6.2 X10'3 (4.5-11.0); eCRCL 39 ML/MIN; eGFR 35 ML/MIN
[2023-08-09 08:54] LABS: GLUCOSE 46 MG/DL (70-104)
[2023-08-09] MEDS: lisinopril 5mg tablet PO SCH (09:55)
[2023-08-09] MEDS: linezolid 600mg tablet PO SCH (10:00)
[2023-08-09] MEDS: insulin glargine (Lantus) pen - multi-dose SQ SCH (20:50)
[2023-08-09] MEDS ORDERED: insulin glargine (Lantus) pen - multi-dose SQ SCH (21:00)
[2023-08-10] VITALS (13 sets, daily range): BP systolic 80–104; BP diastolic 53–65; PULSE 70–86; RESP 12–18; TEMP 96–97.7; O2SAT 90–100
[2023-08-10] MEDS: magnesium hydroxide 30ml (MOM) UD suspension PO PRN (01:50)
[2023-08-10] MEDS: DEXTROSE 15 GM of carb/4 tabs (each vial/BOTTLE has 4 tablets) PO PRN (07:05)
[2023-08-10 09:19] LABS: BASOPHILS % (AUTO) 0.5 % (0-1); EOSINOPHILS # (AUTO) 0.1 X10'3 (0-0.9); EOSINOPHILS % (AUTO) 1.1 % (0-6); HEMATOCRIT 31.6 % (35.0-45.0); HEMOGLOBIN 10.1 g/dl (12.0-16.0); LYMPHOCYTES # (AUTO) 0.4 X10'3 (1.1-4.8); LYMPHOCYTES % (AUTO) 5.8 % (21-51); MEAN CORPUSCULAR HGB CONC 31.9 g/dL (33.0-36.5); MEAN CORPUSCULAR VOLUME 78.4 FL (78-98); MEAN PLATELET VOLUME 10.3 FL (7.4-10.4); MONOCYTES # (AUTO) 0.7 X10'3 (0-0.9); MONOCYTES % (AUTO) 9.1 % (2-12); NEUTROPHILS # (AUTO) 6.1 X10'3 (1.8-7.7); NEUTROPHILS % (AUTO) 83.5 % (42-75); PLATELET COUNT 144 X10'3 (140-440); RED BLOOD COUNT 4.04 X10'6 (4.20-5.60); WHITE BLOOD COUNT 7.3 X10'3 (4.5-11.0)
[2023-08-10 09:30] LABS: ALANINE AMINOTRANSFERASE 21 U/L (12-78); ALBUMIN 2.5 G/DL (3.4-5.0); ALBUMIN/GLOBULIN RATIO 0.7 (1.1-1.5); ALKALINE PHOSPHATASE 82 IU/L (46-116); ANION GAP 9 (8-16); ASPARTATE AMINO TRANSFERASE 27 U/L (10-37); BILIRUBIN,TOTAL 1.1 MG/DL (0.1-1.0); BLOOD UREA NITROGEN 38 MG/DL (7-18); BUN/CREATININE RATIO 23.5 (10.0-20.0); CALCIUM 8.5 MG/DL (8.5-10.1); CHLORIDE 93 MMOL/L (99-107); CREATININE 1.62 MG/DL (0.40-0.90); GLUCOSE 125 MG/DL (70-104); POTASSIUM 2.9 MMOL/L (3.5-5.1); PRO BRAIN NATRIURETIC PEPTIDE 10725 PG/ML (0-125); SODIUM 133 MMOL/L (135-145); TOTAL CARBON DIOXIDE 30.8 MMOL/L (24-32); eCRCL 36 ML/MIN; eGFR 32 ML/MIN
[2023-08-10 09:41] LABS: ANISOCYTOSIS 3+; MICROCYTOSIS 1+; PLATELET ESTIMATE NORMAL; TOTAL CELLS COUNTED 100
[2023-08-10 09:42] LABS: ACANTHOCYTES FEW; GIANT PLATELET FEW; LARGE PLATELETS FEW; POLYCHROMASIA FEW; TARGET CELLS FEW; TEAR DROP CELLS FEW
[2023-08-10] MEDS: furosemide 40mg/4ml inj IV SCH (09:50)
[2023-08-10] MEDS: potassium Cl 20 mEq SR tablet PO SCH (10:30)
[2023-08-10] MEDS: potassium Cl 20 mEq SR tablet PO PRN (10:31)
[2023-08-10] MEDS: acetaminophen 325mg tablet PO PRN (15:54)
[2023-08-10] MEDS: insulin glargine (Lantus) pen - multi-dose SQ SCH (20:57)
[2023-08-10] MEDS: duloxetine 30mg CAPSULE.DR PO SCH (21:01)
[2023-08-11] VITALS (8 sets, daily range): BP systolic 92–104; BP diastolic 50–82; PULSE 87–95; RESP 15–26; TEMP 96–98.1; O2SAT 95–98
[2023-08-11 08:23] LABS: ALANINE AMINOTRANSFERASE 25 U/L (12-78); ALBUMIN 2.6 G/DL (3.4-5.0); ALBUMIN/GLOBULIN RATIO 0.7 (1.1-1.5); ALKALINE PHOSPHATASE 85 IU/L (46-116); ANION GAP 10 (8-16); ASPARTATE AMINO TRANSFERASE 23 U/L (10-37); BILIRUBIN,TOTAL 1.4 MG/DL (0.1-1.0); BLOOD UREA NITROGEN 35 MG/DL (7-18); BUN/CREATININE RATIO 21.1 (10.0-20.0); CALCIUM 9.1 MG/DL (8.5-10.1); CHLORIDE 96 MMOL/L (99-107); CREATININE 1.66 MG/DL (0.40-0.90); GLUCOSE 87 MG/DL (70-104); POTASSIUM 4.2 MMOL/L (3.5-5.1); SODIUM 134 MMOL/L (135-145); TOTAL CARBON DIOXIDE 28.5 MMOL/L (24-32); TOTAL PROTEIN 6.4 G/DL (6.4-8.2); eCRCL 35 ML/MIN; eGFR 31 ML/MIN
== END 2023-08-11 16:05 | DRG 193 ==
LOC: ER 17:02 → ED HOLD 08-05 00:42 → PCU 3S 08-05 03:50
PROVIDERS: ADMIT Surgery Surgical Critical Care; ATTEND Internal Medicine
PROC: B32T1ZZ Computerized Tomography (CT Scan) of Left Pulmonary Artery using Low Osmolar Contrast (ICD-10-PCS; principal; 2023-08-05)
PROC: B32S1ZZ Computerized Tomography (CT Scan) of Right Pulmonary Artery using Low Osmolar Contrast (ICD-10-PCS; 2023-08-05)
PROC: B3201ZZ Computerized Tomography (CT Scan) of Thoracic Aorta using Low Osmolar Contrast (ICD-10-PCS; 2023-08-05)
DX: J18.9 Pneumonia, unspecified organism (principal); I50.23 Acute on chronic systolic (congestive) heart failure; J96.01 Acute respiratory failure with hypoxia; N17.0 Acute kidney failure with tubular necrosis; I13.0 Hypertensive heart and chronic kidney disease with heart failure and stage 1 through stage 4 chronic kidney disease, or unspecified chronic kidney disease; N39.0 Urinary tract infection, site not specified; J44.0 Chronic obstructive pulmonary disease with (acute) lower respiratory infection; I42.7 Cardiomyopathy due to drug and external agent; I42.9 Cardiomyopathy, unspecified; R65.10 Systemic inflammatory response syndrome (SIRS) of non-infectious origin without acute organ dysfunction; Z66 Do not resuscitate; E11.22 Type 2 diabetes mellitus with diabetic chronic kidney disease; E11.42 Type 2 diabetes mellitus with diabetic polyneuropathy; E78.00 Pure hypercholesterolemia, unspecified; I25.10 Atherosclerotic heart disease of native coronary artery without angina pectoris; I27.20 Pulmonary hypertension, unspecified; N18.9 Chronic kidney disease, unspecified; G89.29 Other chronic pain; F32.A Depression, unspecified; B95.2 Enterococcus as the cause of diseases classified elsewhere; E87.6 Hypokalemia; D50.9 Iron deficiency anemia, unspecified; T45.1X5A Adverse effect of antineoplastic and immunosuppressive drugs, initial encounter; Y92.89 Other specified places as the place of occurrence of the external cause; Z88.5 Allergy status to narcotic agent; Z83.3 Family history of diabetes mellitus; Z85.3 Personal history of malignant neoplasm of breast; Z87.11 Personal history of peptic ulcer disease; Z95.810 Presence of automatic (implantable) cardiac defibrillator; Z88.0 Allergy status to penicillin; Z91.040 Latex allergy status; Z79.899 Other long term (current) drug therapy; Z79.02 Long term (current) use of antithrombotics/antiplatelets; Z87.440 Personal history of urinary (tract) infections; Z92.21 Personal history of antineoplastic chemotherapy; F41.9 Anxiety disorder, unspecified; R33.9 Retention of urine, unspecified; M19.90 Unspecified osteoarthritis, unspecified site
CPT/HCPCS: 36415; 36600; 71045; 71275; 76770; 80053; 81001; 82803; 82948; 83036; 83540; 83550; 83605; 83735; 83880; 85007; 85008; 85018; 85025; 87077; 87081; 87088; 87186; 92508; 92616; 93005; 93308; 94640; 94760; 96374; 97110; 97161; 97530; 99281; 99285; A4314; A4338; A4615; A5200; A6212; A6213; A6222; A6223; A6250; A6402; A6449; C1758; G0378; J0696; J1650; J1815; J1940; J2060; J3480; J3490; J7040; P9045; Q9967